=== PATIENT | male | born 2000 | race African-American/Black ===

== ENCOUNTER 2024-03-19 02:25 | Emergency (ER) | payer SELFPAY ==
--- NOTE | ~2024-03-19 | CT_ITS ---
EXAMINATION: CT soft tissue neck w con DATE: 03/19/2024 03:38 INDICATION: Neck pain TECHNIQUE: Computed tomography (CT) of the neck was performed with 75 mL Omnipaque-350 intravenous co ntrast. Automated exposure control and iterative reconstruction technique were employed. Exam dose: 452.44 mGy-cm total exam DLP. COMPARISON: None FINDINGS: There is minimal right upper mild left upper patchy infiltrate suggesting pneumonia. Minimal diameter of the aortic arch. There is superior mediastinal mass lesion or adenopathy. Normal size and homogeneous enhancement of the thyroid gland. The parotid and submandibular glands appear symmetric and normal. No cervical mass lesion or lymphadenopathy is detected. No evidence of carotid artery dissection or stenosis or occlusion. The airway is patent. The tonsillar regions are normal. No prevertebral soft tissue swelling. Normal epiglottis and aryepiglottic folds. No significant skeletal abnormality. IMPRESSION: Minimal right upper and left upper lobe patchy infiltrate suggesting pneumonia No cervical soft tissue mass lesion or adenopathy Reviewed, dictated and finalized at [facility] Reviewed, dictated and finalized at [facility]. TEST MECHANIC IMPRESSION: Minimal right upper and left upper lobe patchy infiltrate suggesti ng pneumonia No cervical soft tissue mass lesion or adenopathy
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
[2024-03-19 02:21] VITALS: PULSE 81; RESP 19; TEMP 36.7; O2SAT 100
--- NOTE | 2024-03-19 02:26 | ECG_ITS ---
Test Date: 2024-03-19 02:26:43 Measurements Intervals [place] Rate: 74 P: 15 FL: 150 QRS: 78 QRSD: 86 T: 29 QT: 364 QTc: 406 Interpretive Statements SINUS RHYTHM INCOMPLETE RIGHT BUNDLE BRANCH BLOCK NONSPECIFIC ST & T-WAVE ABNORMALITY No previous ECG available for comparison Electronically Signed On 03-22-2024 16:01:58 [employer] by Dante Zamarripa M.D.
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
[2024-03-19 03:03] LABS: Basophils Percent Auto 0.4 % (0.2-1.2); Eosinophils Absolute Auto 0.2 K/mm3 (0-0.3); Eosinophils Percent Auto 2.2 % (0-4.4); Hematocrit 33.1 % (42.0-52.0); Hemoglobin 11.1 g/dL (14.0-18.0); Immature Granulocyte Absolute 0.13 K/mm3 (0.00-0.031); Immature Granulocyte Percent A 1.6 % (0-0.5); Lymphocytes Absolute Auto 1.34 K/mm3 (0.9-3.2); Lymphocytes Percent Auto 16.5 % (18.3-44.2); Mean Corpuscular HGB Conc 33.5 g/dl (32-36); Mean Corpuscular Hemoglobin 28.2 pg (26-34); Mean Corpuscular Volume 84.2 fl (80-100); Mean Platelet Volume 8.9 fl (7.4-10.4); Monocytes Absolute Auto 0.8 K/mm3 (0.1-0.6); Monocytes Percent Auto 9.5 % (2.6-8.5); Neutrophils Absolute Auto 5.7 K/mm3 (1.3-6.7); Neutrophils Percent Auto 69.8 % (45.5-73.1); Platelet Count Result 382 k/mm3 (150-375); Red Blood Count 3.93 M/mm3 (4.6-6.20); Red Cell Distribution Width 10.7 % (11.5-14.5); White Blood Count 8.1 K/mm3 (4.5-10.0)
[2024-03-19 03:09] VITALS: BP 110/71; PULSE 78; RESP 13; O2SAT 100
[2024-03-19 03:13] VITALS: BP 110/71
[2024-03-19 03:13] LABS: Lactic Acid Reflex 0.9 mmol/L (0.7-2.0)
[2024-03-19 03:17] LABS: Alanine Aminotransferase 33 U/L (6-50); Albumin Level 3.7 g/dL (3.5-5.1); Alkaline Phosphatase 61 U/L (38-126); Anion Gap 3 mmol/L (4-12); Aspartate Amino Transferase 35 U/L (17-59); Bilirubin,Total 1.3 mg/dL (0.2-1.3); Blood Urea Nitrogen 12 mg/dL (9-20); Calcium 9.1 mg/dL (8.4-10.2); Carbon Dioxide 28 mmol/L (22-30); Chloride 101 mmol/L (98-107); Estimated Glomerular Filt Rate > 60; Glucose 105 mg/dL (65-110); Potassium 3.9 mmol/L (3.4-5.0); Sodium 132 mmol/L (137-145)
[2024-03-19 03:21] LABS: Partial Thromboplastin Time 28.2 Seconds (22.3-36.8)
[2024-03-19 03:29] LABS: Procalcitonin 0.2 ng/mL
[2024-03-19 03:39] LABS: Influenza A QL RT-PCR Negative (Negative); Influenza B QL RT-PCR Negative (Negative); RSV RNA, RT-PCR Negative (Negative); SARS-CoV-2 RNA PCR Negative (Negative)
[2024-03-19 05:24] VITALS: BP 122/88; PULSE 99; RESP 18; O2SAT 100
[2024-03-19 06:01] LABS: Add Urine Microscopic? YES; Appearance Urine Clear (Clear); Bilirubin Urine Negative (Negative); Blood Urine Negative (Negative); Color Urine Dark Yellow (Yellow); Glucose Urine UA Negative (Negative); Ketones Urine 1+ mg/dL (Negative); Leukocyte Esterase Ur Negative LEU/UL (Negative); Nitrate Urine Negative (Negative); Protein Urine Trace mg/dL (Negative); Specific Grav Ur > 1.045 (1.001-1.035)
[2024-03-19 06:04] LABS: Bacteria Urine None Seen /hpf; Non Pathogenic Casts 0-2; RBC Urine 0-2 /hpf (0-2); Squamous Epithelial Cell Urine None Seen /hpf (Few); WBC Urine 0-5 /hpf (0-3)
--- OUTSIDE RECORDS SUMMARY | 2024-03-26 02:06 | XMS_ITS | Clinical Summary ---
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 used for patients with unstable renal function and has not been validated in children and those over 70. Current interpretive data was last reviewed 2021. Blood 03/15/2024 10:0 8 PM WAITER/WAITRESS TAKE OUT 03/15/2024 10:48 PM WAITER/WAITRESS TAKE OUT [facility] BLOOD ORDERABLE S Final Result [facility] [place] [address] * (ABNORMAL) CBC without differential (03/15/2024 10:08 PM WAITER/WAITRESS TAKE OUT) Pathologist [facility] WBC 11.3(H) 3.8 - 9.9 K/cumm Hgb 12.5(L) 13.0 - 17.5 g/dL [facility] Hct 37.0(L) 38.9 - 50.3 % [facility] Plt 297 150 - 400 K/cumm [facility] MPV 9.4 9.1 - 12.3 fL [facility] RBC 4.43 4.30 - 5.80 M/cumm [facility] MCV 83.5 81.3 - 96.4 fL [facility] MCH 28.2 27.1 - 33.3 pg [facility] MCHC 33.8 32.3 - 35.7 g/dL [facility] RDW CV 11.0(L) 11.1 - 14.9 % [facility] RDW SD 33.6(L) 35.7 - 48.1 fL [facility] NRBC abs 0.00 0.00 - 0.01 K/cumm [facility] Blood 03/15/2024 10:0 8 PM WAITER/WAITRESS TAKE OUT 03/15/2024 10:47 PM WAITER/WAITRESS TAKE OUT Esther Bautista LAB BLOOD ORDERABLE S Final Result [facility] Department [place] [address] * Phosphorus (03/15/2024 10:08 PM WAITER/WAITRESS TAKE OUT) Pathologist [facility] Phosphorus, pl 4.1 2.3 - 4.5 mg/dL Blood 03/15/2024 10:0 8 PM WAITER/WAITRESS TAKE OUT 03/15/2024 10:48 PM WAITER/WAITRESS TAKE OUT [facility] LAB BLOOD ORDERABLE S Final Result Performing Organization Address City/[facility]/ZIP Co de Phone Number [facility] Department [place] [address] * Magnesium (03/15/2024 10:08 PM WAITER/WAITRESS TAKE OUT) Pathologist [facility] Magnesium 2.3 1.4 - 2.5 mg/dL Blood 03/15/2024 10:0 8 PM WAITER/WAITRESS TAKE OUT 03/15/2024 10:48 PM WAITER/WAITRESS TAKE OUT [facility] LAB BLOOD ORDERABLE S Final Result Performing Organization Address [facility] de Phone Number [facility] Department [place] [address] * (ABNORMAL) Basic metabolic panel (03/15/2024 10:08 PM WAITER/WAITRESS TAKE OUT) [facility] Sodium 139 135 - 145 mmol/L Potassium, pl 3.7 3.3 - 4.9 mmol/L [facility] Chloride 96(L) 97 - 110 mmol/L [facility] CO2 32 22 - 32 mmol/L [facility] Anion gap 11 2 - 15 mmol/L [facility] BUN 13 6 - 25 mg/dL [facility] Creatinine 1.16 0.80 - 1.30 mg/dL [facility] Glucose 88 70 - 199 mg/dL [facility] Comment: Interpretive Data Fasting glucose >/= 126 mg/dl is diagnostic for diabetes. ?? Fasting is defined as no caloric intake for at least 8 hours. Fasting glucose between 100 mg/dl to 125 mg/dl is diagnostic of prediabetes. In a patient with classic symptoms of hyperglycemia or hyperglycemic crisis, a random glucose >/= 200 mg/dl is diagnostic for diabetes. In the absence of unequivocal hyperglycemia, results should be confirmed by repeat testing. The classification and Diagnosis of Diabetes Diabetes Care 2021; 46: S19-S40. Current interpretive data was last revised 2022. Calcium 9.5 8.5 - 10.3 mg/dL [facility] Blood 03/15/2024 10:0 8 PM WAITER/WAITRESS TAKE OUT 03/15/2024 10:48 PM WAITER/WAITRESS TAKE OUT Esther [facility] DO LAB BLOOD ORDERABLE S Final Result Performing Organization Address [facility] Co de Phone Number [facility] [place] [address] * POCT glucose (03/15/2024 6:00 PM WAITER/WAITRESS TAKE OUT) Glucose, POC 92 70 - 199 mg/dL Blood 03/15/2024 6:00 PM WAITER/WAITRESS TAKE OUT 03/15/2024 6:00 PM WAITER/WAITRESS TAKE OUT [facility] LAB POCT ORDERABLES - DEVICE Final Result Performing Organization Address [facility] Phone Number [facility] Department [place] [address] * XR Abdomen 1 View AP (03/15/2024 2:24 PM WAITER/WAITRESS TAKE OUT) Anatomical Region Laterality Modality Body, Abdomen N/A Digital Radiogra phy 03/16/2024 8:30 AM WAITER/WAITRESS TAKE OUT Impressions 03/16/2024 8:30 AM WAITER/WAITRESS TAKE OUT Initial exam 12:07 PM. ??Nasogastric tube terminates in the peripyloric region of the stomach. Subsequent exam 2:22 PM. ??Slight retraction of the nasogastric tube, now terminating in the gastric antrum. Final exam 03/16/24, 1:07 AM. ??Slight retraction of the nasogastric tube, now terminating in the gastric body, side port just below the gastroesophageal junction. ??Normal bowel gas pattern. Electronically signed by: Shay Dougherty M.D. Narrative 03/16/2024 8:30 AM WAITER/WAITRESS TAKE OUT EXAMINATION: Abdomen, one view x3 exams. Procedure Note Shay Dougherty MD - 03/16/2024 EXAMINATION: Abdomen, one view x3 exams. IMPRESSION: Initial exam 12:07 PM. Nasogastric tube terminates in the peripyloric region of the stomach. Subsequent exam 2:22 PM. Slight retraction of the nasogastric tube, now terminating in the gastric antrum. Final exam 03/16/24, 1:07 AM. Slight retraction of the nasogastric tube, now terminating in the gastric body, side port just below the gastroesophageal junction. Normal bowel gas pattern. Electronically signed by: Shay Dougherty M.D. Esther Bautista DO IMG XR PROCEDURES F inal Result * POCT glucose (03/15/2024 12:31 PM WAITER/WAITRESS TAKE OUT) Glucose, POC 91 70 - 199 mg/dL Blood 03/15/2024 12:3 1 PM WAITER/WAITRESS TAKE OUT 03/15/2024 12:31 PM WAITER/WAITRESS TAKE OUT Esther Bautista DO LAB POCT ORDERABLES - DEVICE Final Result [facility] Department [place] [address] * XR Abdomen 1 View AP (03/15/2024 12:29 PM WAITER/WAITRESS TAKE OUT) Anatomical Region Laterality Modality Body, Abdomen N/A Computed Radiogr aphy 03/16/2024 8:30 AM WAITER/WAITRESS TAKE OUT Impressions 03/16/2024 8:30 AM WAITER/WAITRESS TAKE OUT Initial exam 12:07 PM. ??Nasogastric tube terminates in the peripyloric region of the stomach. Subsequent exam 2:22 PM. ??Slight retraction of the nasogastric tube, now terminating in the gastric antrum. Final exam 03/16/24, 1:07 AM. ??Slight retraction of the nasogastric tube, now terminating in the gastric body, side port just below the gastroesophageal junction. ??Normal bowel gas pattern. Electronically signed by: Shay Dougherty M.D. Narrative 03/16/2024 8:30 AM WAITER/WAITRESS TAKE OUT EXAMINATION: Abdomen, one view x3 exams. Procedure Note Shay Dougherty MD - 03/16/2024 EXAMINATION: Abdomen, one view x3 exams. IMPRESSION: Initial exam 12:07 PM. Nasogastric tube terminates in the peripyloric region of the stomach. Subsequent exam 2:22 PM. Slight retraction of the nasogastric tube, now terminating in the gastric antrum. Final exam 03/16/24, 1:07 AM. Slight retraction of the nasogastric tube, now terminating in the gastric body, side port just below the gastroesophageal junction. Normal bowel gas pattern. Electronically signed by: Shay Dougherty M.D. Estherrosy Bautista DO IMG XR PROCEDURES F inal Result * eGFR (03/14/2024 10:11 PM WAITER/WAITRESS TAKE OUT) eGFR >90 >=60 mL/min/1. 73 m2 Comment: Interpretive Data Reference Interval Normal ?>/= 90 mL/min/1.73m2 Mildly decreased* ? 60 - 89 mL/min/1.73m2 Mildly to moderately decreased ?45 - 59 mL/min/1.73m2 Moderately to severely decreased ??30 - 44 mL/min/1.73m2 Severely decreased ?15 - 29 mL/min/1.73m2 Kidney Failure ?< 15 ??mL/min/1.73m2 *Relative to young adult level Estimated glomerular filtration rate is determined by the 2020 CKD-EPI equation recommended by the National Kidney Foundation (A Unifying Approach to GFR Estimation: Recommendations of the NKF-ASK Task Force on Reassessing the Inclusion of Race in Diagnosing Kidney Disease, JASN 2020). The CKD-EPI equation should not be used for patients with unstable renal function and has not been validated in children and those over 70. Current interpretive data was last reviewed 2021. Blood 03/14/2024 10:1 1 PM WAITER/WAITRESS TAKE OUT 03/14/2024 10:41 PM WAITER/WAITRESS TAKE OUT [facility] BLOOD ORDERABLE S Final Result [facility] [place] [address] * (ABNORMAL) CBC without differential (03/14/2024 10:11 PM WAITER/WAITRESS TAKE OUT) [facility] WBC 11.0(H) 3.8 - 9.9 K/cumm Hgb 12.5(L) 13.0 - 17.5 g/dL [facility] Hct 36.3(L) 38.9 - 50.3 % [facility] Plt 255 150 - 400 K/cumm [facility] MPV 9.8 9.1 - 12.3 fL [facility] RBC 4.34 4.30 - 5.80 M/cumm [facility] MCV 83.6 81.3 - 96.4 fL [facility] MCH 28.8 27.1 - 33.3 pg [facility] MCHC 34.4 32.3 - 35.7 g/dL [facility] RDW CV 10.9(L) 11.1 - 14.9 % [facility] RDW SD 33.6(L) 35.7 - 48.1 fL [facility] NRBC abs 0.00 0.00 - 0.01 K/cumm [facility] Blood 03/14/2024 10:1 1 PM WAITER/WAITRESS TAKE OUT 03/14/2024 10:42 PM WAITER/WAITRESS TAKE OUT Esther Michelle Bautista LAB BLOOD ORDERABLE S Final Result [facility] [place] [address] * Phosphorus (03/14/2024 10:11 PM WAITER/WAITRESS TAKE OUT) [facility] Phosphorus, pl 3.4 2.3 - 4.5 mg/dL Blood 03/14/2024 10:1 1 PM WAITER/WAITRESS TAKE OUT 03/14/2024 10:41 PM WAITER/WAITRESS TAKE OUT [facility] LAB BLOOD ORDERABLE S Final Result Performing Organization Address [facility] Co de Phone Number [facility] Department [place] [address] * Magnesium (03/14/2024 10:11 PM WAITER/WAITRESS TAKE OUT) [facility] Magnesium 1.8 1.4 - 2.5 mg/dL Blood 03/14/2024 10:1 1 PM WAITER/WAITRESS TAKE OUT 03/14/2024 10:41 PM WAITER/WAITRESS TAKE OUT [facility] LAB BLOOD ORDERABLE S Final Result Performing Organization Address [facility] de Phone Number [facility] [place] [address] * (ABNORMAL) Basic metabolic panel (03/14/2024 10:11 PM WAITER/WAITRESS TAKE OUT) [facility] Sodium 138 135 - 145 mmol/L Potassium, pl 3.6 3.3 - 4.9 mmol/L [facility] Chloride 96(L) 97 - 110 mmol/L [facility] CO2 30 22 - 32 mmol/L [facility] Anion gap 12 2 - 15 mmol/L [facility] BUN 9 6 - 25 mg/dL [facility] Creatinine 1.15 0.80 - 1.30 mg/dL [facility] Glucose 88 70 - 199 mg/dL [facility] Comment: Interpretive Data Fasting glucose >/= 126 mg/dl is diagnostic for diabetes. ?? Fasting is defined as no caloric intake for at least 8 hours. Fasting glucose between 100 mg/dl to 125 mg/dl is diagnostic of prediabetes. In a patient with classic symptoms of hyperglycemia or hyperglycemic crisis, a random glucose >/= 200 mg/dl is diagnostic for diabetes. In the absence of unequivocal hyperglycemia, results should be confirmed by repeat testing. The classification and Diagnosis of Diabetes Diabetes Care 2021; 46: S19-S40. Current interpretive data was last revised 2022. Calcium 9.4 8.5 - 10.3 mg/dL [facility] Blood 03/14/2024 10:1 1 PM WAITER/WAITRESS TAKE OUT 03/14/2024 10:41 PM WAITER/WAITRESS TAKE OUT Esther Bautista DO LAB BLOOD ORDERABLE S Final Result [facility] [place] [address] * (ABNORMAL) Urinalysis reflex to microscopic (03/14/2024 6:07 PM WAITER/WAITRESS TAKE OUT) Color, ur Ruth Yellow Clarity, ur Cloudy(A) Clear [facility] Specific gravity, ur 1.022 1.003 - 1.030 [facility] pH, urine 8.0 [facility] Comment: Interpretive Data ? Urine pH is affected by diet, medications, systemic acid-base disturbances, and renal tubular function. ??pH may affect urinary stone formation. ??For example, urine pH below 6.0 may help reduce the tendency for calcium phosphate stones and pH greater than 6.0 may reduce the tendency for uric acid stone formation. Source: [facility] [employer] Current Interpretive Data was last revised on 2017 Protein, ur ql 1+(A) Negative [facility] Glucose, ur ql Negative Negative [facility] Ketones, ur 4+(A) Negative [facility] Bilirubin, ur Negative Negative [facility] Blood, ur Negative Negative [facility] Urobilinogen, ur 4.0(A) <2.0 mg/dL [facility] Nitrite, ur Negative Negative [facility] Leukocyte esterase, ur Negative Negative [facility] UA reflex comment Reflex to microscopic UA will be performed. [facility] Urine 03/14/2024 6:07 PM WAITER/WAITRESS TAKE OUT 03/14/2024 6:41 PM WAITER/WAITRESS TAKE OUT us Esther Bautista DO LAB URINE ORDERABLE S Final Result Performing Organization Address [facility] [place] [address] * (ABNORMAL) Urinalysis, microscopic only (03/14/2024 6:07 PM WAITER/WAITRESS TAKE OUT) WBC, ur 0-5 0 - 5 /HPF RBC, ur 0-2 0 - 2 /HPF [facility] Mucous, ur Present(A) [facility] Amorphous crystals, ur 4+(A) [facility] Urine 03/14/2024 6:07 PM WAITER/WAITRESS TAKE OUT 03/14/2024 6:41 PM WAITER/WAITRESS TAKE OUT Esther Bautista DO LAB URINE ORDERABLE S Final Result Performing Organization Address [facility] de Phone Number [facility] [place] [address] * eGFR (03/14/2024 4:14 AM WAITER/WAITRESS TAKE OUT) eGFR >90 >=60 mL/min/1. 73 m2 Comment: Interpretive Data Reference Interval Normal ?>/= 90 mL/min/1.73m2 Mildly decreased* ? 60 - 89 mL/min/1.73m2 Mildly to moderately decreased ?45 - 59 mL/min/1.73m2 Moderately to severely decreased ??30 - 44 mL/min/1.73m2 Severely decreased ?15 - 29 mL/min/1.73m2 Kidney Failure ?< 15 ??mL/min/1.73m2 *Relative to young adult level Estimated glomerular filtration rate is determined by the 2020 CKD-EPI equation recommended by the National Kidney Foundation (A Unifying Approach to GFR Estimation: Recommendations of the NKF-ASK Task Force on Reassessing the Inclusion of Race in Diagnosing Kidney Disease, JASN 202). The CKD-EPI equation should not be used for patients with unstable renal function and has not been validated in children and those over 70. Current interpretive data was last reviewed 2021. Blood 03/14/2024 4:14 AM WAITER/WAITRESS TAKE OUT 03/14/2024 4:47 AM WAITER/WAITRESS TAKE OUT [facility] LAB BLOOD ORDERABLE S Final Result Performing Organization Address City/State/[facility] Co de Phone Number [facility] [place] [address] * (ABNORMAL) CBC without differential (03/14/2024 4:14 AM WAITER/WAITRESS TAKE OUT) WBC 10.0(H) 3.8 - 9.9 K/cumm Hgb 11.5(L) 13.0 - 17.5 g/dL [facility] Hct 34.0(L) 38.9 - 50.3 % [facility] Plt 208 150 - 400 K/cumm [facility] MPV 9.7 9.1 - 12.3 fL [facility] RBC 4.05(L) 4.30 - 5.80 M/cumm [facility] MCV 84.0 81.3 - 96.4 fL [facility] MCH 28.4 27.1 - 33.3 pg [facility] MCHC 33.8 32.3 - 35.7 g/dL [facility] RDW CV 11.0(L) 11.1 - 14.9 % [facility] RDW SD 33.8(L) 35.7 - 48.1 fL [facility] NRBC abs 0.00 0.00 - 0.01 K/cumm [facility] Blood 03/14/2024 4:14 AM WAITER/WAITRESS TAKE OUT 03/14/2024 4:46 AM WAITER/WAITRESS TAKE OUT [facility] LAB BLOOD ORDERABLE S Final Result Performing Organization Address City/[facility] Co de Phone Number [facility] [place] [address] * Phosphorus (03/14/2024 4:14 AM WAITER/WAITRESS TAKE OUT) [facility] Phosphorus, pl 3.0 2.3 - 4.5 mg/dL Blood 03/14/2024 4:14 AM WAITER/WAITRESS TAKE OUT 03/14/2024 4:47 AM WAITER/WAITRESS TAKE OUT [facility] LAB BLOOD ORDERABLE S Final Result Performing Organization Address City/[facility] Co de Phone Number [facility] [place] [address] * Magnesium (03/14/2024 4:14 AM WAITER/WAITRESS TAKE OUT) [facility] Magnesium 1.9 1.4 - 2.5 mg/dL Blood 03/14/2024 4:14 AM WAITER/WAITRESS TAKE OUT 03/14/2024 4:47 AM WAITER/WAITRESS TAKE OUT [facility] LAB BLOOD ORDERABLE S Final Result Performing Organization Address [facility] de Phone Number [facility] [place] [address] * (ABNORMAL) Basic metabolic panel (03/14/2024 4:14 AM WAITER/WAITRESS TAKE OUT) [facility] Sodium 134(L) 135 - 145 mmol/L Potassium, pl 3.7 3.3 - 4.9 mmol/L [facility] Chloride 96(L) 97 - 110 mmol/L [facility] CO2 26 22 - 32 mmol/L [facility] Anion gap 12 2 - 15 mmol/L [facility] BUN 9 6 - 25 mg/dL [facility] Creatinine 1.12 0.80 - 1.30 mg/dL [facility] Glucose 100 70 - 199 mg/dL [facility] Comment: Interpretive Data Fasting glucose >/= 126 mg/dl is diagnostic for diabetes. ?? Fasting is defined as no caloric intake for at least 8 hours. Fasting glucose between 100 mg/dl to 125 mg/dl is diagnostic of prediabetes. In a patient with classic symptoms of hyperglycemia or hyperglycemic crisis, a random glucose >/= 200 mg/dl is diagnostic for diabetes. In the absence of unequivocal hyperglycemia, results should be confirmed by repeat testing. The classification and Diagnosis of Diabetes Diabetes Care 2021; 46: S19-S40. Current interpretive data was last revised 2022. Calcium 9.0 8.5 - 10.3 mg/dL [facility] Blood 03/14/2024 4:14 AM WAITER/WAITRESS TAKE OUT 03/14/2024 4:47 AM WAITER/WAITRESS TAKE OUT us Esther Bautista DO LAB BLOOD ORDERABLE S Final Result [facility] [place] [address] * XR Abdomen 1 View AP (03/13/2024 11:24 PM WAITER/WAITRESS TAKE OUT) Anatomical Region Laterality Modality Body, Abdomen N/A Computed Radiogr aphy 03/14/2024 8:57 AM WAITER/WAITRESS TAKE OUT Impressions 03/14/2024 11:09 AM WAITER/WAITRESS TAKE OUT Gastric tube tip terminates in the cardia with side-port in the fundus. Dictated by: Oh Moran MD The radiology attending physician has personally reviewed this study, and had reviewed and/or edited this written report and agrees with it. Electronically signed by: Shay Dougherty M.D. Narrative 03/14/2024 11:09 AM WAITER/WAITRESS TAKE OUT EXAMINATION: Abdomen, one view. HISTORY: Check tube placement. COMPARISON: CT 03/11/2024 Procedure Note Shay Dougherty MD - 03/14/2024 EXAMINATION: Abdomen, one view. HISTORY: Check tube placement. COMPARISON: CT 03/11/2024 IMPRESSION: Gastric tube tip terminates in the cardia with side-port in the fundus. Dictated by: Oh Mroan MD The radiology attending physician has personally reviewed this study, and had reviewed and/or edited this written report and agrees with it. Electronically signed by: Shay Dougherty M.D. us Esther Bautista DO IMG XR PROCEDURES F inal Result * eGFR (03/12/2024 10:31 PM WAITER/WAITRESS TAKE OUT) eGFR 89 >=60 mL/min/1. 73 m2 Comment: Interpretive Data Reference Interval Normal ?>/= 90 mL/min/1.73m2 Mildly decreased* ? 60 - 89 mL/min/1.73m2 Mildly to moderately decreased ?45 - 59 mL/min/1.73m2 Moderately to severely decreased ??30 - 44 mL/min/1.73m2 Severely decreased ?15 - 29 mL/min/1.73m2 Kidney Failure ?< 15 ??mL/min/1.73m2 *Relative to young adult level Estimated glomerular filtration rate is determined by the 2020 CKD-EPI equation recommended by the National Kidney Foundation (A Unifying Approach to GFR Estimation: Recommendations of the [employer] Task Force on Reassessing the Inclusion of Race in Diagnosing Kidney Disease, JASN 2020). The CKD-EPI equation should not be used for patients with unstable renal function and has not been validated in children and those over 70. Current interpretive data was last reviewed 2021. Blood 03/12/2024 10:3 1 PM WAITER/WAITRESS TAKE OUT 03/12/2024 11:03 PM WAITER/WAITRESS TAKE OUT Esther Bautista DO LAB BLOOD ORDERABLE S Final Result [facility] Department [place] [address] * HIV 1/2 Antibody plus p24 Antigen Blood (03/12/2024 10:31 PM WAITER/WAITRESS TAKE OUT) HIV 1/2 ab + p24 ag Nonreactive Nonreactive Comment:Nonreactive for HIV- 1 antigen and HIV-1/HIV-2 antibodies. No laboratory evidence of HIV infection. If acute HIV infection is suspected, consider testing for HIV-1 RNA. Current interpretive data was last revised on 21. Blood 03/12/2024 10:3 1 PM WAITER/WAITRESS TAKE OUT 03/12/2024 11:04 PM WAITER/WAITRESS TAKE OUT Esther Bautista DO LAB MICROBIOLOGY - GENERAL ORDERABLES Final Result Performing Organization Address [facility] de Phone Number [facility] [place] [place] [address] * Hepatitis C antibody Blood (03/12/2024 10:31 PM WAITER/WAITRESS TAKE OUT) Pathologist [facility] Hep C Ab Nonreactive Nonreactive Comment:Antibodies to HCV no t detected. Does NOT exclude the possibility of recent exposure to HCV. Current interpretive data was last revised on 21 Blood 03/12/2024 10:3 1 PM WAITER/WAITRESS TAKE OUT 03/12/2024 11:04 PM WAITER/WAITRESS TAKE OUT Esther Bautista DO LAB MICROBIOLOGY - GENERAL ORDERABLES Final Result Performing Organization Address City/[facility] Co de Phone Number [facility] [place] [employer] [place] [address] * RPR Blood (03/12/2024 10:31 PM WAITER/WAITRESS TAKE OUT) Pathologist [facility] RPR Nonreactive Nonreactive Blood 03/12/2024 10:3 1 PM WAITER/WAITRESS TAKE OUT 03/12/2024 11:03 PM WAITER/WAITRESS TAKE OUT Esther Michelle Bautista DO LAB MICROBIOLOGY - GENERAL ORDERABLES Final Result Performing Organization Address [facility] de Phone Number [facility] Department [place] [address] * Hepatitis B Surface Antigen Blood (03/12/2024 10:31 PM WAITER/WAITRESS TAKE OUT) [facility] HepBsAg Nonreactive Nonreactive Blood 03/12/2024 10:3 1 PM WAITER/WAITRESS TAKE OUT 03/12/2024 11:04 PM WAITER/WAITRESS TAKE OUT Esther Bautista DO LAB MICROBIOLOGY - GENERAL ORDERABLES Final Result Performing Organization Address [facility] Co de Phone Number [facility] [place] [address] * (ABNORMAL) CBC without differential (03/12/2024 10:31 PM WAITER/WAITRESS TAKE OUT) [facility] WBC 15.8(H) 3.8 - 9.9 K/cumm Hgb 12.5(L) 13.0 - 17.5 g/dL [facility] Hct 36.8(L) 38.9 - 50.3 % [facility] Plt 213 150 - 400 K/cumm [facility] MPV 9.6 9.1 - 12.3 fL [facility] RBC 4.33 4.30 - 5.80 M/cumm [facility] MCV 85.0 81.3 - 96.4 fL [facility] MCH 28.9 27.1 - 33.3 pg [facility] MCHC 34.0 32.3 - 35.7 g/dL [facility] RDW CV 11.0(L) 11.1 - 14.9 % [facility] RDW SD 34.3(L) 35.7 - 48.1 fL [facility] NRBC abs 0.00 0.00 - 0.01 K/cumm [facility] Blood 03/12/2024 10:3 1 PM WAITER/WAITRESS TAKE OUT 03/12/2024 11:04 PM WAITER/WAITRESS TAKE OUT Esther Bautista DO LAB BLOOD ORDERABLE S Final Result Performing Organization Address City/[facility] Co de Phone Number [facility] Department [place] [address] * (ABNORMAL) Phosphorus (03/12/2024 10:31 PM WAITER/WAITRESS TAKE OUT) [facility] Phosphorus, pl 1.5(L) 2.3 - 4.5 mg/dL Blood 03/12/2024 10:3 1 PM WAITER/WAITRESS TAKE OUT 03/12/2024 11:03 PM WAITER/WAITRESS TAKE OUT Esther Michelle Bautista LAB BLOOD ORDERABLE S Final Result Performing Organization Address City/[facility]/ZIP Co de Phone Number [facility] [place] [address] * Magnesium (03/12/2024 10:31 PM WAITER/WAITRESS TAKE OUT) [facility] Magnesium 1.7 1.4 - 2.5 mg/dL Blood 03/12/2024 10:3 1 PM WAITER/WAITRESS TAKE OUT 03/12/2024 11:03 PM WAITER/WAITRESS TAKE OUT Esther Michelle Bautista LAB BLOOD ORDERABLE S Final Result Performing Organization Address City/[facility] Co de Phone Number [facility] Department [place] [address] * Basic metabolic panel (03/12/2024 10:31 PM WAITER/WAITRESS TAKE OUT) [facility] Sodium 137 135 - 145 mmol/L Potassium, pl 3.9 3.3 - 4.9 mmol/L [facility] Chloride 100 97 - 110 mmol/L [facility] CO2 25 22 - 32 mmol/L [facility] Anion gap 12 2 - 15 mmol/L [facility] BUN 8 6 - 25 mg/dL [facility] Creatinine 1.19 0.80 - 1.30 mg/dL [facility] Glucose 88 70 - 199 mg/dL [facility] Comment: Interpretive Data Fasting glucose >/= 126 mg/dl is diagnostic for diabetes. ?? Fasting is defined as no caloric intake for at least 8 hours. Fasting glucose between 100 mg/dl to 125 mg/dl is diagnostic of prediabetes. In a patient with classic symptoms of hyperglycemia or hyperglycemic crisis, a random glucose >/= 200 mg/dl is diagnostic for diabetes. In the absence of unequivocal hyperglycemia, results should be confirmed by repeat testing. The classification and Diagnosis of Diabetes Diabetes Care 2021; 46: S19-S40. Current interpretive data was last revised 2022. Calcium 9.1 8.5 - 10.3 mg/dL [facility] Blood 03/12/2024 10:3 1 PM WAITER/WAITRESS TAKE OUT 03/12/2024 11:03 PM WAITER/WAITRESS TAKE OUT Esther Bautista DO LAB BLOOD ORDERABLE S Final Result [facility] Department [place] [address] * Surgical pathology (03/11/2024 2:45 PM WAITER/WAITRESS TAKE OUT) Tissue (Small bowel, resection non- tumor) 03/11/2024 2:45 PM WAITER/WAITRESS TAKE OUT Tissue (Colon, Resection, Non-tumor) 03/11/2024 2:58 PM WAITER/WAITRESS TAKE OUT Narrative PATHOLOGY [facility] - 03/16/2024 12:57 PM WAITER/WAITRESS TAKE OUT EPIC results best viewed via link to PDF [facility] [place] [address] Note to Patients: This report may contain a detailed description of human tissue sent by a health care provider to the laboratory for pathologic evaluation. The content of this report is essential for diagnosis and may provide important critical findings. This information may be unfamiliar to patients to review without a medical professional present. It is advised that the patient review this report in the presence of a health care provider who can answer questions and explain the details. SURGICAL PATHOLOGY REPORT FINAL Patient Name: ?? BLANCA CHINCHILLA Gender: ??M : ??2000 (Age: 23) [address] [place] Hospital #: ??[id number] Taken:03/11/2024 Received:03/13/2024 Reported: 03/16/2024 Patient Type: [facility] Inpatient ?? Service: Emergency Location: [place] [id number] Physician(s): ??Esther Bautista, DO Pasquale Byrd MD Diagnosis: A. ??Small bowel, resection ? - Segment of small intestine with transmural defects, hemorrhage, and acute ischemic injury. ? - Viable margins of resection. B. ??Colon, resection ? - Segment of large intestine with hemorrhage,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 reanalysis. Chloride 98 97 - 110 mmol/L [facility] CO2 22 22 - 32 mmol/L [facility] Anion gap 20(H) 2 - 15 mmol/L [facility] BUN 16 6 - 25 mg/dL [facility] Creatinine 1.38(H) 0.80 - 1.30 mg/dL [facility] Glucose 132 70 - 199 mg/dL [facility] Comment: Interpretive Data Fasting glucose >/= 126 mg/dl is diagnostic for diabetes. ?? Fasting is defined as no caloric intake for at least 8 hours. Fasting glucose between 100 mg/dl to 125 mg/dl is diagnostic of prediabetes. In a patient with classic symptoms of hyperglycemia or hyperglycemic crisis, a random glucose >/= 200 mg/dl is diagnostic for diabetes. In the absence of unequivocal hyperglycemia, results should be confirmed by repeat testing. The classification and Diagnosis of Diabetes Diabetes Care 202; 46: S19-S40. Current interpretive data was last revised 2022. Calcium 9.7 8.5 - 10.3 mg/dL [facility] Blood 03/11/2024 12:3 4 PM WAITER/WAITRESS TAKE OUT 03/11/2024 12:59 PM WAITER/WAITRESS TAKE OUT us Erasto Gomes MD LAB BLOOD ORDERABLES Fi nal Result Performing Organization Address City/[facility]/ZIP Co de Phone Number [facility] [place] [address] from Last 3 Months Insurance [facility] Advance Directives For more information, please contact: [phone] * Full Code (Latest Code Status on File) Date Activated Date Inactivated Comments 03/11/2024 7:25 PM 03/18/2024 8:10 PM * Full Code Date Activated Date Inactivated Comments 06/30/2019 9:27 PM 07/02/2019 10:26 AM Care Teams Keyboard Teacher Relationship Specialty Start Date End Date Ele Canas MD [address] [place] [id number] PCP - General Family Medicine 10/20/21
--- OUTSIDE RECORDS SUMMARY | 2024-03-26 02:06 | XMS_ITS | Referral Summary ---
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 K/cumm [facility] MPV 9.7 9.1 - 12.3 fL [facility] RBC 4.05(L) 4.30 - 5.80 M/cumm [facility] MCV 84.0 81.3 - 96.4 fL [facility] MCH 28.4 27.1 - 33.3 pg [facility] MCHC 33.8 32.3 - 35.7 g/dL [facility] RDW CV 11.0(L) 11.1 - 14.9 % [facility] RDW SD 33.8(L) 35.7 - 48.1 fL [facility] NRBC abs 0.00 0.00 - 0.01 K/cumm [facility] Blood 03/14/2024 4:14 AM TRANSONIC ENGINEER 03/14/2024 4:46 AM TRANSONIC ENGINEER [facility] BLOOD ORDERABLE S Final Result Performing Organization Address [facility] de Phone Number [facility] [place] [address] * Phosphorus (03/14/2024 4:14 AM TRANSONIC ENGINEER) Pathologist [facility] Phosphorus, pl 3.0 2.3 - 4.5 mg/dL Blood 03/14/2024 4:14 AM TRANSONIC ENGINEER 03/14/2024 4:47 AM TRANSONIC ENGINEER [facility] BLOOD ORDERABLE S Final Result Performing Organization Address [facility] de Phone Number [facility] [place] [address] * Magnesium (03/14/2024 4:14 AM TRANSONIC ENGINEER) Pathologist [facility] Magnesium 1.9 1.4 - 2.5 mg/dL Blood 03/14/2024 4:14 AM TRANSONIC ENGINEER 03/14/2024 4:47 AM TRANSONIC ENGINEER Esther Bautista DO LAB BLOOD ORDERABLE S Final Result [facility] [place] [address] * (ABNORMAL) Basic metabolic panel (03/14/2024 4:14 AM TRANSONIC ENGINEER) Pathologist [facility] Sodium 134(L) 135 - 145 mmol/L Potassium, pl 3.7 3.3 - 4.9 mmol/L [facility] Chloride 96(L) 97 - 110 mmol/L [facility] CO2 26 22 - 32 mmol/L [facility] Anion gap 12 2 - 15 mmol/L [facility] BUN 9 6 - 25 mg/dL [facility] Creatinine 1.12 0.80 - 1.30 mg/dL [facility] Glucose 100 70 - 199 mg/dL [facility] Comment: Interpretive Data Fasting glucose >/= 126 [...] 2022. Calcium 9.0 8.5 - 10.3 mg/dL [facility] Blood 03/14/2024 4:14 AM TRANSONIC ENGINEER 03/14/2024 4:47 AM TRANSONIC ENGINEER us Esther Bautista DO LAB BLOOD ORDERABLE S Final Result ROMAN CHATTERJEE [facility] [place] [address] * XR Abdomen 1 View AP (03/13/2024 11:24 PM TRANSONIC ENGINEER) Anatomical Region Laterality Modality Body, Abdomen N/A Computed Radiogr aphy 03/14/2024 8:57 AM TRANSONIC ENGINEER Impressions 03/14/2024 11:09 AM TRANSONIC ENGINEER Gastric tube tip terminates in the cardia with side-port in the fundus. Dictated by: Oh Moran MD The radiology attending physician has personally reviewed this study, and had reviewed and/or edited this written report and agrees with it. Electronically signed by: Shay Dougherty M.D. Narrative 03/14/2024 11:09 AM TRANSONIC ENGINEER EXAMINATION: Abdomen, one view. HISTORY: Check tube [...] it. Electronically signed by: Shay Dougherty M.D. Esther Bautista DO IMG XR PROCEDURES F inal Result * eGFR (03/12/2024 10:31 PM TRANSONIC ENGINEER) eGFR 89 >=60 mL/min/1. 73 m2 Comment: [...] reviewed 2021. Blood 03/12/2024 10:3 1 PM TRANSONIC ENGINEER 03/12/2024 11:03 PM TRANSONIC ENGINEER Esther Bautista DO LAB BLOOD ORDERABLE S Final Result Performing Organization Address [facility] Co de Phone Number ROMAN CHATTERJEE [facility] [place] [address] * HIV 1/2 Antibody plus p24 Antigen Blood (03/12/2024 10:31 PM TRANSONIC ENGINEER) Pathologist [facility] HIV 1/2 ab + p24 ag Nonreactive Nonreactive Comment:Nonreactive for HIV- 1 antigen and HIV-1/HIV-2 antibodies. No laboratory evidence of HIV infection. If acute HIV infection is suspected, consider testing for HIV-1 RNA. Current interpretive data was last revised on 21. Blood 03/12/2024 10:3 1 PM TRANSONIC ENGINEER 03/12/2024 11:04 PM TRANSONIC ENGINEER Esther Bautista DO LAB MICROBIOLOGY - GENERAL ORDERABLES Final Result [facility] [place] [address] * Hepatitis C antibody Blood (03/12/2024 10:31 PM TRANSONIC ENGINEER) Pathologist [facility] Hep C Ab Nonreactive Nonreactive Comment:Antibodies to HCV no t detected. Does NOT exclude the possibility of recent exposure to HCV. Current interpretive data was last revised on 21 Blood 03/12/2024 10:3 1 PM TRANSONIC ENGINEER 03/12/2024 11:04 PM TRANSONIC ENGINEER Esther Bautista DO LAB MICROBIOLOGY - GENERAL ORDERABLES Final Result Performing Organization Address [facility] [place] [address] * RPR Blood (03/12/2024 10:31 PM TRANSONIC ENGINEER) [facility] RPR Nonreactive Nonreactive Blood 03/12/2024 10:3 1 PM TRANSONIC ENGINEER 03/12/2024 11:03 PM TRANSONIC ENGINEER Esther Bautista DO LAB MICROBIOLOGY - GENERAL ORDERABLES Final Result Performing Organization Address [facility] Co de Phone Number [facility] [place] [address] * Hepatitis B Surface Antigen Blood (03/12/2024 10:31 PM TRANSONIC ENGINEER) [facility] HepBsAg Nonreactive Nonreactive Blood 03/12/2024 10:3 1 PM TRANSONIC ENGINEER 03/12/2024 11:04 PM TRANSONIC ENGINEER Esther Bautista DO LAB MICROBIOLOGY - GENERAL ORDERABLES Final Result Performing Organization Address [facility] Co de Phone Number [facility] [place] [address] * (ABNORMAL) CBC without differential (03/12/2024 10:31 PM TRANSONIC ENGINEER) Pathologist [facility] WBC 15.8(H) 3.8 - 9.9 K/cumm Hgb 12.5(L) 13.0 - 17.5 g/dL [facility] Hct 36.8(L) 38.9 - 50.3 % [facility] Plt 213 150 - 400 K/cumm [facility] MPV 9.6 9.1 - 12.3 fL [facility] RBC 4.33 4.30 - 5.80 M/cumm [facility] MCV 85.0 81.3 - 96.4 fL [facility] MCH 28.9 27.1 - 33.3 pg [facility] MCHC 34.0 32.3 - 35.7 g/dL [facility] RDW CV 11.0(L) 11.1 - 14.9 % [facility] RDW SD 34.3(L) 35.7 - 48.1 fL [facility] NRBC abs 0.00 0.00 - 0.01 K/cumm [facility] Blood 03/12/2024 10:3 1 PM TRANSONIC ENGINEER 03/12/2024 11:04 PM TRANSONIC ENGINEER [facility] LAB BLOOD ORDERABLE S Final Result Performing Organization Address City/[facility] de Phone Number [facility] Department [place] [address] * (ABNORMAL) Phosphorus (03/12/2024 10:31 PM TRANSONIC ENGINEER) [facility] Phosphorus, pl 1.5(L) 2.3 - 4.5 mg/dL Blood 03/12/2024 10:3 1 PM TRANSONIC ENGINEER 03/12/2024 11:03 PM TRANSONIC ENGINEER [facility] LAB BLOOD ORDERABLE S Final Result Performing Organization Address City/[facility]/ZIP Co de Phone Number [facility] [place] [address] * Magnesium (03/12/2024 10:31 PM TRANSONIC ENGINEER) Magnesium 1.7 1.4 - 2.5 mg/dL Blood 03/12/2024 10:3 1 PM TRANSONIC ENGINEER 03/12/2024 11:03 PM TRANSONIC ENGINEER [facility] LAB BLOOD ORDERABLE S Final Result [facility] [place] [address] * Basic metabolic panel (03/12/2024 10:31 PM TRANSONIC ENGINEER) Pathologist [facility] Sodium 137 135 - 145 mmol/L Potassium, pl 3.9 3.3 - 4.9 mmol/L [facility] Chloride 100 97 - 110 mmol/L [facility] CO2 25 22 - 32 mmol/L [facility] Anion gap 12 2 - 15 mmol/L [facility] BUN 8 6 - 25 mg/dL [facility] Creatinine 1.19 0.80 - 1.30 mg/dL [facility] Glucose 88 70 - 199 mg/dL [facility] Comment: Interpretive Data Fasting glucose >/= 126 [...] 2022. Calcium 9.1 8.5 - 10.3 mg/dL [facility] Blood 03/12/2024 10:3 1 PM TRANSONIC ENGINEER 03/12/2024 11:03 PM TRANSONIC ENGINEER us Estherrosy Bautista DO LAB BLOOD ORDERABLE S Final Result [facility] [place] [address] * Surgical pathology (03/11/2024 2:45 PM TRANSONIC ENGINEER) Tissue (Small bowel, resection non- tumor) 03/11/2024 2:45 PM TRANSONIC ENGINEER Tissue (Colon, Resection, Non-tumor) 03/11/2024 2:58 PM TRANSONIC ENGINEER Narrative PATHOLOGY [facility] - 03/16/2024 12:57 PM TRANSONIC ENGINEER EPIC results best viewed via link to PDF [facility] Daiana Morfin [facility] [place] [address] Note to Patients: This report may contain [...] PATHOLOGY REPORT FINAL Patient Name: ?? BLANCA CHINCHILLAMaryellen Gender: ??M : ??2000 (Age: 23) Address: ??[address] [place] [address] ??[id number] Hospital #: ??[id number] Taken:03/11/2024 Received:03/13/2024 Reported: 03/16/2024 Patient Type: [facility] Inpatient ?? Service: Emergency Location: [facility] [address]64 Physician(s): ??Esther Bautista, DO Pasquale Byrd MD [...] in size (0.2 cm). Photographs are provided. Hospital Medical Assistant sections are submitted in cassettes A1-A2 (entire [...] in size (0.3-0.5 cm). Photographs are provided. Hospital Medical Assistant sections are submitted in cassettes B1-B2 (entire [...] Surgical Pathology and Flow Cytometry Departments at [facility] as part of an ongoing quality assurance specialist program and in compliance with federally [...] Surgical Pathology and Flow Cytometry Departments of [facility]. ??It has not been cleared or approved by the U. S. Food and Drug Administration. IMAGES AND SCANNED DOCUMENTS, IF INCLUDED, ONLY VIEWABLE IN PDF VERSION OF REPORT Esther Bautista DO LAB PATHOLOGY ORDER JULIEN Final Result PATHOLOGY [facility] 3rd Floor [place], [place] [phone] * Airway (03/11/2024 2:19 PM TRANSONIC ENGINEER) Narrative Balta Johnson DO - 03/11/2024 2:19 PM TRANSONIC ENGINEER Balta Johnson DO ? 03/11/2024 ??2:19 PM [...] MD PhD ANESTHESIA ORDERABLES Final Result * [place] CRITICAL CARE ILL/INJURED PATIENT INIT 30-74 MIN (03/11/2024 1:57 PM TRANSONIC ENGINEER) Narrative Erasto Gomes MD - 03/11/2024 1:57 PM TRANSONIC ENGINEER Erasto Gomes MD ? 03/11/2024 ??2:01 PM [...] And Bilateral Iliofemoral Runoff (03/11/2024 12:52 PM TRANSONIC ENGINEER) Anatomical Region Laterality Modality Body Bilateral Computed Tomogra phy 03/11/2024 1:11 PM TRANSONIC ENGINEER Impressions 03/11/2024 1:45 PM TRANSONIC ENGINEER 1. ??Rectosigmoid colon viscus perforation/injury as evidenced [...] discussed with Elba Pal MD by Dr. Kyle on 1:00 PM at 03/03/2024 ?? Dictated by: Grzegorz Kyle MD The radiology attending physician has personally reviewed this study, and had reviewed and/or edited this written report and agrees with it. Electronically signed by: Shay Freitas MD Narrative 03/11/2024 1:45 PM TRANSONIC ENGINEER EXAMINATION: ??CT ANGIOGRAPHY OF THE ABDOMEN, PELVIS, [...] discussed with Elba Pal MD by Dr. Kyle on 1:00 PM at 03/03/2024 Dictated by: Grzegorz Kyle MD The radiology attending physician has personally reviewed this study, and had reviewed and/or edited this written report and agrees with it. Electronically signed by: Shay Freitas MD Antoine Hays MD IMG CT PROCEDURES Final R esult * (ABNORMAL) POC Blood Gas and Chemistries, Arterial - (03/11/2024 12:36 PM TRANSONIC ENGINEER) [facility] K POC 2.7(L) 3.3 - 4.9 mmol/L Comment: Interpretive Data Not all point of care methods assess for hemolysis. Confirm with instrument and retest K+ if not consistent with clinical signs and symptoms. Current Interpretive Data was last revised on 2023. Hct, POC 42.0 41.4 - 51.6 % [facility] Total Hb, POC 13.9 13.8 - 17.2 g/dL [facility] Blood 03/11/2024 12:3 6 PM TRANSONIC ENGINEER 03/11/2024 12:36 PM TRANSONIC ENGINEER Notinfile Unknown LAB POCT ORDERABLES - DEVICE F inal Result [facility] [place] [address] * (ABNORMAL) Thromboelastometry Panel - Heparin (03/11/2024 12:34 PM TRANSONIC ENGINEER) [facility] HEPTEM-CT 136(L) 141 - 215 sec HEPTEM-A5 43 33 - 51 mm [facility] HEPTEM-A10 53 44 - 61 mm [facility] HEPTEM-A20 59 52 - 67 mm [facility] HEPTEM-MCF 59 54 - 69 mm [facility] Blood 03/11/2024 12:3 4 PM TRANSONIC ENGINEER 03/11/2024 12:54 PM TRANSONIC ENGINEER us Jonathan Capone MD LAB BLOOD ORDERABLE S Edited Result - Final [facility] [place] [address] * (ABNORMAL) Thromboelastometry Panel - Intrinsic (03/11/2024 12:34 PM TRANSONIC ENGINEER) Pathologist [facility] INTEM-CT 135(L) 139 - 205 sec INTEM-A5 44 36 - 54 mm [facility] INTEM-A10 54 46 - 63 mm [facility] INTEM-A20 59 53 - 68 mm [facility] INTEM-MCF 59 55 - 70 mm [facility] INTEM-LI60 94 93 - 100 % [facility] INTEM-ML 9(H) 0 - 7 % [facility] Blood 03/11/2024 12:3 4 PM TRANSONIC ENGINEER 03/11/2024 12:54 PM TRANSONIC ENGINEER Jonathan Capone MD LAB BLOOD ORDERABLE S Edited Result - Final Performing Organization Address City/[facility]/ZIP Co de Phone Number [facility] Department [place] [address] * Thromboelastometry Panel - Fibrinogen (03/11/2024 12:34 PM TRANSONIC ENGINEER) [facility] FIBTEM-A5 8 5 - 16 mm FIBTEM-A10 9 6 - 17 mm [facility] FIBTEM-A20 10 6 - 18 mm [facility] FIBTEM-MCF 10 9 - 19 mm [facility] Blood 03/11/2024 12:3 4 PM TRANSONIC ENGINEER 03/11/2024 12:54 PM TRANSONIC ENGINEER Jonathan Capone MD LAB BLOOD ORDERABLE S Edited Result - Final [facility] [place] [address] * (ABNORMAL) Thromboelastometry Panel - Extrinsic (03/11/2024 12:34 PM TRANSONIC ENGINEER) Pathologist [facility] EXTEM-CT 58 51 - 73 sec EXTEM-A5 45 33 - 52 mm [facility] EXTEM-A10 55 45 - 62 mm [facility] EXTEM-A20 60 54 - 69 mm [facility] EXTEM-MCF 61 57 - 72 mm [facility] EXTEM-LI60 95 94 - 100 % [facility] EXTEM-ML 7(H) 0 - 6 % [facility] Blood 03/11/2024 12:3 4 PM TRANSONIC ENGINEER 03/11/2024 12:54 PM TRANSONIC ENGINEER us Jonathan Capone MD LAB BLOOD ORDERABLE S Edited Result - Final ROMAN CHATTERJEE [facility] [place] [address] * eGFR (03/11/2024 12:34 PM TRANSONIC ENGINEER) eGFR 74 >=60 mL/min/1. 73 m2 Comment: [...] reviewed 2021. Blood 03/11/2024 12:3 4 PM TRANSONIC ENGINEER 03/11/2024 12:59 PM TRANSONIC ENGINEER Jonathan Capone MD LAB BLOOD ORDERABLE S Final Result [facility] [place] [address] * (ABNORMAL) Differential, auto (03/11/2024 12:34 PM TRANSONIC ENGINEER) Neutrophil abs 3.5 1.5 - 6.5 K/cumm Imm gran abs 0.1 0.0 - 0.1 K/cumm [facility] Lymphocyte abs 4.9(H) 0.8 - 3.3 K/cumm [facility] Monocyte abs 0.7 0.2 - 0.8 K/cumm [facility] Eosinophil abs 0.1 0.0 - 0.5 K/cumm [facility] Basophil abs 0.0 0.0 - 0.1 K/cumm [facility] Neutrophil pct 37.6 % [facility] Comment: Interpretive Data Percent cell count reference ranges are not reported, since discordance with absolute values may lead to misinterpretation of CBC data. Current Interpretive Data was last revised on 2017. Imm gran pct 0.5 % [facility] Comment: Interpretive Data Percent cell count reference ranges are not reported, since discordance with absolute values may lead to misinterpretation of CBC data. Current Interpretive Data was last revised on 2017. Lymphocyte pct 52.5 % [facility] Comment: Interpretive Data Percent cell count reference ranges are not reported, since discordance with absolute values may lead to misinterpretation of CBC data. Current Interpretive Data was last revised on 2017. Monocyte pct 7.6 % [facility] Comment: Interpretive Data Percent cell count reference ranges are not reported, since discordance with absolute values may lead to misinterpretation of CBC data. Current Interpretive Data was last revised on 2017. Eosinophil pct 1.4 % [facility] Comment: Interpretive Data Percent cell count reference ranges are not reported, since discordance with absolute values may lead to misinterpretation of CBC data. Current Interpretive Data was last revised on 2017. Basophil pct 0.4 % [facility] Comment: Interpretive Data Percent cell count reference ranges are not reported, since discordance with absolute values may lead to misinterpretation of CBC data. Current Interpretive Data was last revised on 2017. Blood 03/11/2024 12:3 4 PM TRANSONIC ENGINEER 03/11/2024 12:59 PM TRANSONIC ENGINEER us Jonathan Capone MD LAB BLOOD ORDERABLE S Final Result Performing Organization Address City/[facility]/ZIP Co de Phone Number [facility] [place] [address] * POCT glucose (03/11/2024 12:34 PM TRANSONIC ENGINEER) [facility] Glucose, POC 132 70 - 199 mg/dL Blood 03/11/2024 12:3 4 PM TRANSONIC ENGINEER 03/11/2024 12:34 PM TRANSONIC ENGINEER Erasto Gomes MD LAB POCT ORDERABLES - D EVICE Final Result Performing Organization Address [facility] Co de Phone Number [facility] [place] [address] * (ABNORMAL) CBC with auto differential (03/11/2024 12:34 PM TRANSONIC ENGINEER) [facility] WBC 9.4 3.8 - 9.9 K/cumm Hgb 14.0 13.0 - 17.5 g/dL [facility] Hct 41.4 38.9 - 50.3 % [facility] Plt 316 150 - 400 K/cumm [facility] MPV 9.7 9.1 - 12.3 fL [facility] RBC 4.90 4.30 - 5.80 M/cumm [facility] MCV 84.5 81.3 - 96.4 fL [facility] MCH 28.6 27.1 - 33.3 pg [facility] MCHC 33.8 32.3 - 35.7 g/dL [facility] RDW CV 11.0(L) 11.1 - 14.9 % [facility] RDW SD 34.0(L) 35.7 - 48.1 fL [facility] NRBC abs 0.00 0.00 - 0.01 K/cumm [facility] Blood (Blood, Venous) 03/11/2024 12:34 PM TRANSONIC ENGINEER 03/11/2024 12:59 PM TRANSONIC ENGINEER Erasto Gomes MD LAB BLOOD ORDERABLES Fi nal Result [facility] [place] [address] * ABO/Rh (03/11/2024 12:34 PM TRANSONIC ENGINEER) ABO Rh B Positive Blood 03/11/2024 12:3 4 PM TRANSONIC ENGINEER 03/11/2024 1:10 PM TRANSONIC ENGINEER Esther Bautista DO LAB BLOOD BANK TEST ORDERABLES Final Result Performing Organization Address [facility] Co de Phone Number [facility] [place] [address] * (ABNORMAL) aPTT (03/11/2024 12:34 PM TRANSONIC ENGINEER) aPTT 18(L) 28 - 38 sec Comment: No clot detected in sample - [id number] - 03/11/24, 1:26 PM Interpretive Data Heparin therapeutic range: 66.0 - 100.0 seconds. Range based on correlation with therapeutic heparin activity range of 0.3 - 0.7 Units/mL. Current interpretive data was last revised on 2022. Blood 03/11/2024 12:3 4 PM TRANSONIC ENGINEER 03/11/2024 1:05 PM TRANSONIC ENGINEER Erasto Gomes MD LAB BLOOD ORDERABLES Fi nal Result Performing Organization Address [facility] Co de Phone Number [facility] [place] [address] * Protime-INR (03/11/2024 12:34 PM TRANSONIC ENGINEER) PT 11.9 9.7 - 13.0 sec Comment:No clot detected in sample - [id number] - 03/11/24, 1:26 PM INR 1.10 0.90 - 1.20 [facility] Comment: Interpretive data Oral anticoagulant therapeutic ranges: Venous thromboembolism prophylaxis or treatment: 2.0-3.0 CARDIOLOGY Standard range: 2.0-3.0 High-intensity range: 2.5-3.5 Refer to indication-specific guidelines for appropriate target ranges for prosthetic heart valve replacement. Current interpretive data was last revised on 2019. Blood 03/11/2024 12:3 4 PM TRANSONIC ENGINEER 03/11/2024 1:05 PM TRANSONIC ENGINEER Erasto Gomes MD LAB BLOOD ORDERABLES Fi nal Result Performing Organization Address [facility] [place] [address] * Antibody screen (03/11/2024 12:34 PM TRANSONIC ENGINEER) [place], indirect Negative Blood 03/11/2024 12:3 4 PM TRANSONIC ENGINEER 03/11/2024 1:10 PM TRANSONIC ENGINEER Esther Bautista DO LAB BLOOD BANK TEST ORDERABLES Final Result Performing Organization Address [facility] Co de Phone Number [facility] [place] [address] * Blood gas, venous (03/11/2024 12:34 PM TRANSONIC ENGINEER) pH, Venous 7.41 7.32 - 7.43 PCO2, Venous 40 40 - 50 mmHg [facility] PO2, Venous 37 mmHg [facility] Comment: Interpretive Data No Reference Range Established Current Interpretive Data was last revised on 2017. HCO3 Venous, Calculated 26 20 - 30 mmol/L [facility] BE, venous 0 mmol/L [facility] Comment: Interpretive Data No Reference Range Established Current Interpretive Data was last revised on 2017. Blood 03/11/2024 12:3 4 PM TRANSONIC ENGINEER 03/11/2024 12:46 PM TRANSONIC ENGINEER Erasto Gomes MD LAB BLOOD ORDERABLES Fi nal Result Performing Organization Address [facility] Co de Phone Number [facility] [place] [address] * Ethanol (03/11/2024 12:34 PM TRANSONIC ENGINEER) Ethanol <10 <=10 mg/dL Comment: Interpretive Data Legal limit of intoxication > or = 80 mg/dL Levels > or = 400 mg/dL are potentially TOXIC. Current interpretive data was last revised on 2018. Blood 03/11/2024 12:3 4 PM TRANSONIC ENGINEER 03/11/2024 12:59 PM TRANSONIC ENGINEER us Erasto Gomes MD LAB BLOOD ORDERABLES Fi nal Result Performing Organization Address [facility] Co de Phone Number [facility] [place] [address] * (ABNORMAL) Basic metabolic panel (03/11/2024 12:34 PM TRANSONIC ENGINEER) Sodium 140 135 - 145 mmol/L Potassium, pl 3.5 3.3 - 4.9 mmol/L [facility] Comment:Hemolyzed; Potassium value may be falsely elevated by as much as 0.6-1.0 mmol/L. Suggest redraw and reanalysis. Chloride 98 97 - 110 mmol/L [facility] CO2 22 22 - 32 mmol/L [facility] Anion gap 20(H) 2 - 15 mmol/L [facility] BUN 16 6 - 25 mg/dL [facility] Creatinine 1.38(H) 0.80 - 1.30 mg/dL [facility] Glucose 132 70 - 199 mg/dL [facility] Comment: Interpretive Data Fasting glucose >/= 126 [...] 2022. Calcium 9.7 8.5 - 10.3 mg/dL [facility] Blood 03/11/2024 12:3 4 PM TRANSONIC ENGINEER 03/11/2024 12:59 PM TRANSONIC ENGINEER us Erasto Gomes MD LAB BLOOD ORDERABLES Fi nal Result [facility] [place] [address] from Last 3 Months Insurance [facility] PLAN MCKIN[place] HERNANDEZ [id number] [facility] PLAN [place]DE[place] [id number] Advance Directives For more information, please contact: [phone] * Full Code (Latest Code Status on File) Date Activated Date Inactivated Comments 03/11/2024 7:25 PM 03/18/2024 8:10 PM * Full Code Date Activated Date Inactivated Comments 06/30/2019 9:27 PM 07/02/2019 10:26 AM Care Teams Alarm Security Or Surveillance Monitor Relationship Specialty Start Date End Date Ele Canas MD [address] [place] [id number] PCP - General Family Medicine 10/20/21
--- OUTSIDE RECORDS SUMMARY | 2024-03-26 02:07 | XMS_ITS | Encounter Summary ---
Author Organization [facility] Healthcare Address [address] [place] [address] Care Team Providers Care Orthodontic Band Maker Name Role Phone Ele Canas MD Primary Care Provide r Encounter Details Date Type Department Care Team (Late st Contact Info) Description 10/21/[address] [address] Krupa Wood RN Social History Tobacco Use Types Packs/Day Years Used Date Smoking Tobacco: Never Alcohol Use Standard Drinks/Week Comments Yes 0 (1 standard drink = 0.6 oz pur e alcohol) occasional Sex and Gender Information Value Date Recorded Sex Assigned at Not on file Legal Sex Male 1:47 PM CDT Gender Identity Not on file Sexual Orientation Not on file documented as of this encounter ED Notes * Krupa Wood RN - 10/21/2021 1:42 PM CDT This RN spoke with the pt mother who states the pt is not available at this time. Call back number provided if he wishes to call back. Krupa Wood RN 10/21/21 1342 documented in this encounter Plan of Treatment Not on file documented as of this encounter Visit Diagnoses Not on filedocumented in this encounter Care Teams Orthodontic Band Maker Relationship Specialty Start Date End Date Ele Canas MD [address] [place] [id number] PCP - General Family Medicine 10/20/21 documented as of this encounter
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
--- OUTSIDE RECORDS SUMMARY | 2024-03-26 02:07 | XMS_ITS | Encounter Summary ---
Author Organization [facility] Healthcare Address [address] [place] [address] Care Team Providers Care Communications Programmer Name Role Phone Ele Canas MD Primary Care Provide r Reason for Visit * Reason Comments Abdominal Pain Encounter Details Date Type Department Care Team (Late st Contact Info) Description 10/20/2021 11:44 AM CDT - 10/20/2021 2:47 PM CDT Emergency [address] [address] John Pryor MD [address] [place] [id number] Colitis (Primary Dx) Discharge Disposition: Discharge to home or self care Social History Tobacco Use Types Packs/Day Years Used Date Smoking Tobacco: Never Alcohol Use Standard Drinks/Week Comments Yes 0 (1 standard drink = 0.6 oz pur e alcohol) occasional Sex and Gender Information Value Date Recorded Sex Assigned at Not on file Legal Sex Male 1:47 PM CDT Gender Identity Not on file Sexual Orientation Not on file documented as of this encounter Last Filed Vital Signs Vital Sign Reading Time Taken Comments Blood Pressure 151/74 10/20/2021 2:30 PM CDT Pulse 78 10/20/2021 2:30 PM CDT Temperature 36.9 ??C (98.4 ??F) 10/20/2021 12:08 PM C DT Respiratory Rate 18 10/20/2021 2:30 PM CDT Oxygen Saturation 99% 10/20/2021 2:30 PM CDT Inhaled Oxygen Concentration - - Weight 94.3 kg (208 lb) 10/20/2021 7:53 AM CDT Height 182.9 cm (6') 10/20/2021 7:53 AM CDT Body Mass Index 28.21 10/20/2021 7:53 AM CDT documented in this encounter Discharge Instructions * Discharge Instructions* John Pryor MD - 10/20/2021 2:22 PM CDT Fabricio, use the Flagyl and cefpodoxime antibiotics as prescribed and complete the entire course. Use the Newton as needed for pain. Use the Zofran as needed for nausea. Please follow-up with her institutional research director Dr. Ugarte. We have a work note that you may resume work next week on Wednesday. If you have any worsening symptoms this week please return to our emergency department. * Attachments The following attachments cannot be sent through Care Everywhere. * Colitis (AfterCare(R) Instructions(ER/ED)) (Slovenian) documented in this encounter Medications at Time of Discharge HYDROcodone-acetamin ophen (NORCO) 5-325 mg per tabletIndications:Pa in Take 1 tablet by mouth every 6 (six) hours as needed for pain for up to 14 doses 14 tablet 10/20/2021 cefpodoxime (VANTIN) 100 mg tablet Take 1 tablet (100 mg total) by mouth 2 (two) times a day for 7 days 14 tablet 10/20/2021 2 metroNIDAZOLE (FLAGYL) 500 mg tablet Take 1 tablet (500 mg total) by mouth 3 (three) times a day 21 tablet 10/20/2021 5 ondansetron ODT (ZOFRAN-ODT) 4 mg disintegrating tablet Take 1 tablet (4 mg total) by mouth every 8 (eight) hours as needed for nausea or vomiting 20 tablet 10/20/2021 5 documented as of this encounter Ordered Prescriptions Prescription Sig Dispense Quantity Refills Last Filled Start Date End Date HYDROcodone-acetamin ophen (NORCO) 5-325 mg per tabletIndications:Pa in Take 1 tablet by mouth every 6 (six) hours as needed for pain for up to 14 doses 14 tablet 10/20/2021 cefpodoxime (VANTIN) 100 mg tablet Take 1 tablet (100 mg total) by mouth 2 (two) times a day for 7 days 14 tablet 10/20/2021 2 metroNIDAZOLE (FLAGYL) 500 mg tablet Take 1 tablet (500 mg total) by mouth 3 (three) times a day 21 tablet 10/20/2021 5 ondansetron ODT (ZOFRAN-ODT) 4 mg disintegrating tablet Take 1 tablet (4 mg total) by mouth every 8 (eight) hours as needed for nausea or vomiting 20 tablet 10/20/2021 5 documented in this encounter Discharge Disposition Disposition Code Departure Means Destination Discharge to home or self care documented in this encounter ED Notes * John Pryor MD - 10/20/2021 12:05 PM CDT HPI Chief Complaint Patient presents with ??? Abdominal Pain HPI 2:29 PM Brice Corrales is a 21 y.o. male presenting to the ED c/o abdominal pain. Pain is located in left lower quadrant. He has associated diarrhea. Symptoms been off and on since the 12 of October.He was seen at an outside hospital 16 of October and treated for diarrhea. He notice symptoms improved but have now returned. He has had decreased intake of food and water. He denies any blood in thestool. Patient History: History reviewed. No pertinent past medical history. History reviewed. No pertinent surgical history. History reviewed. No pertinent family history. Social History Tobacco Use ??? Smoking status: Never Smoker ??? Smokeless tobacco: None Substance and Sexual Activity ??? Drug use: Yes Frequency: 3.0 times per week Types: Marijuana ??? Sexual activity: Yes Partners: Female control/protection: Condom Male Alcohol Use: Not on file Current Facility-Administered Medications: ??? ondansetron (ZOFRAN) injection 4 mg, 4 mg, intravenous, Once ??? sodium chloride 0.9% bolus 1,000 mL, 1,000 mL, intravenous, Once, Last Rate: 1,000 mL/hr at 10/20/21 1345, 1,000 mL at 10/20/21 1345 Current Outpatient Medications: ??? cefpodoxime (VANTIN) 100 mg tablet ??? HYDROcodone-acetaminophen (NORCO) 5-325 mg per tablet ??? metroNIDAZOLE (FLAGYL) 500 mg tablet ??? ondansetron ODT (ZOFRAN-ODT) 4 mg disintegrating tablet Review of Systems Review of Systems All other systems reviewed and are negative. All systems reviewed and are neg or non contributory for this patients presentation today other than as stated in the HPI . Physical Exam ED Triage Vitals [10/20/21 0753] Temp Pulse Resp BP SpO2 36.7 ??C (98.1 ??F) 62 18 142/77 100 % Temp src Heart Rate Source Patient Position BP Location FiO2 (%) Oral Monitor Sitting Right arm -- Height Height Method Weight Weight Method 1.829 m (6') Stated 94.3 kg (208 lb) Stated Physical Exam Vitals reviewed. Constitutional: Appearance: He is normal weight. HENT: Head: Normocephalic. Cardiovascular: Rate and Rhythm: Normal rate and regular rhythm. Heart sounds: Normal heart sounds. Pulmonary: Breath sounds: Normal breath sounds. Abdominal: Palpations: Abdomen is soft. Tenderness: There is abdominal tenderness in the left lower quadrant. Skin: General: Skin is warm. Neurological: General: No focal deficit present. Mental Status: He is alert. Psychiatric: Mood and Affect: Mood normal. Procedures MDM Labs Reviewed URINALYSIS AND REFLEX TO MICROSCOPIC AND CULTURE - Abnormal Result Value Color, ur Yellow Clarity, ur Clear Specific gravity, ur <1.005 pH, urine 7.0 Protein, ur ql Trace Glucose, ur ql Negative Ketones, ur 1+ (*) Bilirubin, ur Negative Blood, ur Negative Urobilinogen, ur <2.0 Nitrite, ur Negative Leukocyte esterase, ur 1+ (*) UA reflex comment Reflex to microscopic UA will be performed. Narrative: Urine pH is affected by diet, medications, systemic acid-base disturbances, and renal tubular function. pH may affect urinary stone formation. For example, urine pH below 6.0 may help reduce the tendency for calcium phosphate stones and pH greater than 6.0 may reduce the tendency for uric acid stone formation. Source: [employer].Last revised 03-25-2017 CBC WITH AUTO DIFFERENTIAL - Abnormal WBC 4.0 Hgb 14.8 Hct 43.5 Plt 266 MPV 9.2 RBC 5.10 MCV 85.3 MCH 29.0 MCHC 34.0 RDW CV 10.8 (*) RDW SD 33.8 (*) NRBC abs 0.00 COMPREHENSIVE METABOLIC PANEL - Abnormal Sodium 138 Potassium, pl 3.6 Chloride 101 CO2 27 Anion gap 10 BUN 10 Creatinine 1.40 (*) Glucose 91 Calcium 9.7 Bilirubin, total 0.7 Protein, pl 7.2 Albumin 4.6 Alk phos 72 ALT 15 AST 17 LIPASE - Abnormal Lipase 187 (*) DIFFERENTIAL AUTO - Abnormal Neutrophil abs 1.5 (*) Imm gran abs 0.0 Lymphocyte abs 1.8 Monocyte abs 0.3 Eosinophil abs 0.4 Basophil abs 0.0 Neutrophil pct 37.1 Imm gran pct 0.3 Lymphocyte pct 45.5 Monocyte pct 6.8 Eosinophil pct 9.3 Basophil pct 1.0 EGFR eGFR 74 URINALYSIS, MICROSCOPIC ONLY WBC, ur 0-5 RBC, ur 0-2 Culture Reflex Comment Value: Reflex conditions for urine culture (WBC >10) not met. ETHANOL Ethanol <[address] Abdomen Pelvis W Contrast Final Result BP 127/58 Pulse 62 Temp 36.9 ??C (98.4 ??F) (Oral) Resp 18 Ht 182.9 cm (6') Wt 94.3 kg (208 lb) SpO2 99% BMI 28.21 kg/m?? [facility] ED Course as of 10/20/21 1429 Time: 10/20 1210 Comment: CT abd/pelvis: IMPRESSION: ? 1. Duodenal and proximal small bowel thickening, suspect enteritis. Pancreas is unremarkable. ?? 2. Borderline dilated appendix measuring 0.6 cm with wall enhancement. Nonspecific possibly mild uncomplicated appendicitis in the appropriate clinical setting. ?? 3. Nonspecific diffuse colon wall thickening, nondistention versus uncomplicated colitis. ?? 4. Suboptimal evaluation due to motion. ?? By: John Pryor MD Time: 08/08 1219 Comment: Patient with signs and symptoms colitis confirmed with CT scan differential diagnosis includes infectious versus inflammatory. Patient has no tenderness right lower quadrant making appendicitis very unlikely from a clinical standpoint. By: John Pryor MD Time: 10/20 122 Comment: Patient with creatinine 1.4. Will give IV fluid in the emergency department. Lipase 187 unlikely to be due to pancreatitis in his clinical setting with no tenderness of the epigastric area and normal CT scan of the pancreas. By: John Pryor MD Time: 10/20 1421 Comment: Patient feeling improved after IV fluid. By: John Pryor MD Time: 10/20 1425 Comment: Discussed with pharmacy outpatient oral antibiotics combination of cephalosporin and Flagyl. Also will have patient follow-up with gastroenterology. By: John Pryor MD This examination was transcribed using the [employer] voice recognition system without human fish header. In an effort to expedite patient care, this report has not been adjusted for typographical, grammatical, and syntax by a trained medical collections. Clinical Impression: Colitis John Pryor MD 10/20/21 142 * Yanet Alcala RN - 10/20/2021 12:05 PM CDT Pt aox4, CC/abdominal pain since 10/12 states that he ate some chicken that was not fully cooked andfelt sick after. Was seen at another facility and was diagnosed with colitis pt states that he was feeling better until this morning and that is when he decided to come in. States he was was having diarrhea x1 today and vomited in CT after the contrast dye. Denies chest pain and shortness of breath. Yanet Alcala, ZENIA 10/20/21 1207 * Laura Hurley RN - 10/20/2021 7:56 AM CDT Pt BIBEMS with c/o lower abdominal pain with worse pain to LLQ intermittently since 10/12. Reports he was seen at [facility] and was told it's possibly food poisoning. Reports diarrhea this morning. Denies blood in stool, urinary symptoms, n/v, fever or chills. documented in this encounter Plan of Treatment Pending Results Name Type Priority Associated Diagnoses Date /Time Ethanol Lab STAT 10/20/2021 8:0 7 AM CDT Scheduled Orders Name Type Priority Associated Diagnoses Orde r Schedule Ethanol Lab STAT Once for 1 Occ urrences starting 10/20/2021 until 10/20/2021 documented as of this encounter Procedures Procedure Name Priority Date/Time Associated Diagnosis Comments URINALYSIS AND REFLEX TO MICROSCOPIC AND CULTURE STAT 10/20/2021 10:58 AM CDT URINALYSIS, MICROSCOPIC ONLY STAT 10/20/2021 10:[address] ABDOMEN PELVIS W CONTRAST ED 10/20/2021 10:50 AM CDT EGFR STAT 10/20/2021 8:07 AM CDT DIFFERENTIAL AUTO STAT 10/20/2021 8:0 7 AM CDT CBC WITH AUTO DIFFERENTIAL STAT 10/20/2021 8:07 AM CDT LIPASE STAT 10/20/2021 8:07 AM CDT ETHANOL STAT 10/20/2021 8:07 AM CDT COMPREHENSIVE METABOLIC PANEL STAT 10/20/2021 8:07 AM CDT documented in this encounter Results * Urinalysis, microscopic only (10/20/2021 10:58 AM CDT) WBC, ur 0-5 0 - 5 /HPF [facility] RBC, ur 0-2 0 - 2 /HPF [facility] Culture Reflex Comment Reflex conditions for urine culture (WBC >10) not met. [facility] Urine 10/20/2021 10:5 8 AM CDT 10/20/2021 11:09 AM CDT Corrine Hopkins DO LAB URINE ORDERABLES Final Resu lt [facility] [address] [facility] Department [place] [address] * (ABNORMAL) Urinalysis reflex to microscopic and culture Urine (10/20/2021 10:58 AM CDT) Color, ur Yellow Yellow [facility] Clarity, ur Clear Clear [facility] Specific gravity, ur <1.005 1.003 - 1.030 [facility] pH, urine 7.0 [facility] Protein, ur ql Trace Negative [facility] Glucose, ur ql Negative Negative [facility] Ketones, ur 1+(A) Negative [facility] Bilirubin, ur Negative Negative [facility] Blood, ur Negative Negative [facility] Urobilinogen, ur <2.0 <2.0 mg/dL [facility] Nitrite, ur Negative Negative [facility] Leukocyte esterase, ur 1+(A) Negative [facility] UA reflex comment Reflex to microscopic UA will be performed. [facility] Urine 10/20/2021 10:5 8 AM CDT 10/20/2021 11:09 AM CDT Narrative CERNER - 10/20/2021 11:20 AM CDT ?? Urine pH is affected by diet, medications, systemic acid-base disturbances, and renal tubular function. ??pH may affect urinary stone formation. ??For example, urine pH below 6.0 may help reduce the tendency for calcium phosphate stones and pH greater than 6.0 may reduce the tendency for uric acid stone formation. Source: [employer]. Last revised 03-25-2017 Corrine Hopkins DO LAB MICROBIOLOGY - [facility] RUDDY GRANT Final Result [facility] [address] [facility] Department [place] [address] * CT Abdomen Pelvis W Contrast (10/20/2021 10:50 AM CDT) Anatomical Region Laterality Modality Body N/A Computed Tomogra phy 10/20/2021 11:1 6 AM CDT Narrative 10/20/2021 11:47 AM CDT EXAM DESCRIPTION: ?? CT ABDOMEN PELVIS W CONTRAST REASON FOR STUDY: ?? Pancreatitis, acute, critically ill ?? c/o lower abdominal pain with worse pain to LLQ intermittently since 10/12. Reports he was seen at [facility] and was told it's possibly food poisoning. Reports diarrhea this morning. ?? No abdominal surgeries ?? Patient vomited during scan. ??Rescanned due to motion. ?? TECHNIQUE: CT scan of the abdomen and pelvis performed with intravenous and ?? without ??oral contrast using helical scanning technique with dynamic intravenous contrast injection. Reconstructed coronal and sagittal MPR images reviewed. All images stored on PACS. Automated exposure control was used as a dose optimization technique for this examination. CONTRAST TYPE/DOSE: ?? 100mL of IOVERSOL 350 MG IODINE/ML INTRAVENOUS SYRINGE ?? injected via ?? intravenous COMPARISON: ?? Chest abdomen pelvis CT 06/30/2019 FINDINGS: Motion artifact with repeat sequences obtained. LOWER CHEST: ?? No significant pulmonary abnormalities. No effusion. LIVER: ?? Normal size. ??No identified cystic or solid masses. GALLBLADDER: ?? Unremarkable BILE DUCTS: ?? No intrahepatic or extrahepatic ductal dilatation. SPLEEN: ?? Normal size. ??No focal lesions. PANCREAS: ?? No identified cystic or solid masses. No significant calcifications. No adjacent inflammation or peripancreatic fluid collections. Pancreatic duct not dilated. ?? ADRENALS: ?? Unremarkable KIDNEYS/URINARY TRACT: ?? No identified significant cystic or solid masses. No visualized stones. No hydronephrosis or hydroureter. Symmetric enhancement. ? Urinary bladder is unremarkable. GI: ?? Gastroesophageal junction and stomach are unremarkable. ??Thickening of the 2nd and 3rd segments of the duodenum and proximal small bowel in the left upper abdomen. ??Nonspecific but could represent enteritis. ??Small bowel is normal diameter with no obstruction. ??The appendix is with borderline dilated measuring 0.6 cm with slightly thickened enhancing wall, series 5, image number 28. ??No intraluminal air within the appendix. ??No significant yodit-appendical inflammatory stranding or lymphadenopathy. ??Diffuse colon wall thickening most prominently involving ascending and transverse colon which is suboptimally evaluated due to motion. ??Possibly nondistention versus is colitis. ??No perforation or abscess. PERITONEUM: ?? No ascites or free air. RETROPERITONEUM: ?? No mass or adenopathy. REPRODUCTIVE: ?? No significant abnormality. VASCULATURE: ?? No abdominal aortic aneurysm. MUSCULOSKELETAL: ?? No significant abnormality. OTHER: ?? No other abnormality. IMPRESSION: ?? 1. ?? Duodenal and proximal small bowel thickening, suspect enteritis. ?? Pancreas is unremarkable. 2. ?? Borderline dilated appendix measuring 0.6 cm with wall enhancement. ?? Nonspecific possibly mild uncomplicated appendicitis in the appropriate clinical setting. 3. ?? Nonspecific diffuse colon wall thickening, nondistention versus uncomplicated colitis. 4. ?? Suboptimal evaluation due to motion. THIS IS AN ELECTRONICALLY VERIFIED FINAL REPORT 10/20/2021 11:47 AM - Electronically signed by ??Markie Bell M.D. AG D: ??10/20/2021 11:47 AM T: Report ID: [id number] Reading Location: ??[id number] Procedure Note Markie Bell MD - 10/20/2021 EXAM DESCRIPTION: CT ABDOMEN PELVIS W CONTRAST REASON FOR STUDY: Pancreatitis, acute, critically ill c/o lower abdominal pain with worse pain to LLQ intermittently since 10/12. Reports he was seen at [facility] and was told it's possibly food poisoning. Reports diarrhea this morning. No abdominal surgeriesPatient vomited during scan. Rescanned due to motion. TECHNIQUE: CT scan of the abdomen and pelvis performed with intravenousand without oral contrast using helical scanning technique with dynamic intravenous contrast injection. Reconstructed coronal and sagittal MPRimages reviewed. All images stored on PACS. Automated exposure control was used as a dose optimization technique forthis examination. CONTRAST TYPE/DOSE: 100mL of IOVERSOL 350 MG IODINE/ML INTRAVENOUSSYRINGE injected via intravenous COMPARISON: Chest abdomen pelvis CT 06/30/2019 FINDINGS: Motion artifact with repeat sequences obtained. LOWER CHEST: No significant pulmonary abnormalities. No effusion. LIVER: Normal size. No identified cystic or solid masses. GALLBLADDER: Unremarkable BILE DUCTS: No intrahepatic or extrahepatic ductal dilatation. SPLEEN: Normal size. No focal lesions. PANCREAS: No identified cystic or solid masses. No significant calcifications. No adjacent inflammation or peripancreatic fluidcollections. Pancreatic duct not dilated. ADRENALS: Unremarkable KIDNEYS/URINARY TRACT: No identified significant cystic or solid masses.No visualized stones. No hydronephrosis or hydroureter. Symmetricenhancement. Urinary bladder is unremarkable. GI: Gastroesophageal junction and stomach are unremarkable. Thickeningof the 2nd and 3rd segments of the duodenum and proximal small bowel in theleft upper abdomen. Nonspecific but could represent enteritis. Small bowel is normal diameter with no obstruction. The appendix is with borderlinedilated measuring 0.6 cm with slightly thickened enhancing wall, series 5, image number 28. No intraluminal air within the appendix. No significant yodit-appendical inflammatory stranding or lymphadenopathy. Diffuse colonwall thickening most prominently involving ascending and transverse colon whichis suboptimally evaluated due to motion. Possibly nondistention versus is colitis. No perforation or abscess. PERITONEUM: No ascites or free air. RETROPERITONEUM: No mass or adenopathy. REPRODUCTIVE: No significant abnormality. VASCULATURE: No abdominal aortic aneurysm. MUSCULOSKELETAL: No significant abnormality. OTHER: No other abnormality. IMPRESSION: 1. Duodenal and proximal small bowel thickening, suspect enteritis. Pancreas is unremarkable. 2. Borderline dilated appendix measuring 0.6 cm with wall enhancement. Nonspecific possibly mild uncomplicated appendicitis in the appropriate clinical setting. 3. Nonspecific diffuse colon wall thickening, nondistention versus uncomplicated colitis. 4. Suboptimal evaluation due to motion. THIS IS AN ELECTRONICALLY VERIFIED FINAL REPORT 10/20/2021 11:47 AM - Electronically signed by Markie Bell M.D. T: Report ID: [id number] Reading Location: [id number] Corrine Hopkins DO IMG CT PROCEDURES Final Result * Ethanol (10/20/2021 8:07 AM CDT) Ethanol <10 <=10 mg/dL [facility] SELF Comment: Interpretive Data Legal limit of intoxication > or = 80 mg/dL Levels > or = 400 mg/dL are potentially TOXIC. Current interpretive data was last revised on 2018. Blood 10/20/2021 8:07 AM CDT 10/20/2021 8:11 AM CDT us Sally SEN LAB BLOOD ORDERABLES Final Resu lt [facility] [address] [facility] Department [place] [address] * eGFR (10/20/2021 8:07 AM CDT) eGFR 74 mL/min/1. 73 m2 [facility] SELF Comment: Interpretive Data Reference Interval Normal ?>/= [...] interpretive data was last reviewed 2021. Blood 10/20/2021 8:07 AM CDT 10/20/2021 8:11 AM CDT Corrine Hopkins DO LAB BLOOD ORDERABLES Final Resu lt [facility] [address] [facility] Department of Laboratories [place], [place] [id number] * (ABNORMAL) Differential, auto (10/20/2021 8:07 AM CDT) Neutrophil abs 1.5(L) 1.7 - 6.5 K/cumm [facility] Imm gran abs 0.0 0.0 - 0.1 K/cumm [facility] Lymphocyte abs 1.8 0.8 - 3.3 K/cumm [facility] Monocyte abs 0.3 0.2 - 0.8 K/cumm [facility] Eosinophil abs 0.4 0.0 - 0.5 K/cumm [facility] Basophil abs 0.0 0.0 - 0.1 K/cumm [facility] Neutrophil pct 37.1 % [facility] Comment: Interpretive Data Percent cell count reference ranges are not reported, since discordance with absolute values may lead to misinterpretation of CBC data. Current Interpretive Data was last revised on 2017. Imm gran pct 0.3 % [facility] Comment: Interpretive Data Percent cell count reference ranges are not reported, since discordance with absolute values may lead to misinterpretation of CBC data. Current Interpretive Data was last revised on 2017. Lymphocyte pct 45.5 % [facility] Comment: Interpretive Data Percent cell count reference ranges are not reported, since discordance with absolute values may lead to misinterpretation of CBC data. Current Interpretive Data was last revised on 2017. Monocyte pct 6.8 % [facility] Comment: Interpretive Data Percent cell count reference ranges are not reported, since discordance with absolute values may lead to misinterpretation of CBC data. Current Interpretive Data was last revised on 2017. Eosinophil pct 9.3 % [facility] Comment: Interpretive Data Percent cell count reference ranges are not reported, since discordance with absolute values may lead to misinterpretation of CBC data. Current Interpretive Data was last revised on 2017. Basophil pct 1.0 % [facility] Comment: Interpretive Data Percent cell count reference ranges are not reported, since discordance with absolute values may lead to misinterpretation of CBC data. Current Interpretive Data was last revised on 2017. Blood 10/20/2021 8:07 AM CDT 10/20/2021 8:11 AM CDT [facility] LAB BLOOD ORDERABLES Final Resu lt Performing Organization Address [facility] Co de Phone Number [address] [address] * (ABNORMAL) Lipase (10/20/2021 8:07 AM CDT) Pathologist [facility] Lipase 187(H) 10 - 99 Units/L [facility] Blood (Blood, Venous) 10/20/2021 8:07 AM CDT 10/20/2021 8:11 AM CDT [facility] LAB BLOOD ORDERABLES Final Resu lt Performing Organization Address City/[facility]/ZIP Co de Phone Number [address] [address] * (ABNORMAL) Comprehensive metabolic panel (10/20/2021 8:07 AM CDT) Pathologist [facility] Sodium 138 135 - 145 mmol/L [facility] Potassium, pl 3.6 3.3 - 4.9 mmol/L [facility] Chloride 101 97 - 110 mmol/L [facility] CO2 27 22 - 32 mmol/L [facility] Anion gap 10 2 - 15 mmol/L [facility] BUN 10 8 - 25 mg/dL [facility] Creatinine 1.40(H) 0.80 - 1.30 mg/dL [facility] Glucose 91 70 - 199 mg/dL [facility] Comment: Interpretive Data Fasting glucose >/= [...] classification and Diagnosis of Diabetes Diabetes Care 2017;40 (Suppl. 1):S11. Current interpretive data was last revised 2017. Calcium 9.7 8.5 - 10.3 mg/dL [facility] Bilirubin, total 0.7 0.1 - 1.2 mg/dL [facility] Protein, pl 7.2 6.5 - 8.5 g/dL [facility] Albumin 4.6 3.5 - 5.0 g/dL [facility] Alk phos 72 40 - 130 Units/L [facility] ALT 15 7 - 55 Units/L [facility] AST 17 10 - 50 Units/L [facility] Blood 10/20/2021 8:07 AM CDT 10/20/2021 8:11 AM CDT us Corrine Hopkins DO LAB BLOOD ORDERABLES Final Resu lt [facility] [id number] [facility] Department [place] [address] * (ABNORMAL) CBC with auto differential (10/20/2021 8:07 AM CDT) WBC 4.0 3.8 - 9.9 K/cumm [facility] Hgb 14.8 13.0 - 17.5 g/dL [facility] Hct 43.5 38.9 - 50.3 % [facility] Plt 266 150 - 400 K/cumm [facility] MPV 9.2 9.1 - 12.3 fL [facility] RBC 5.10 4.30 - 5.80 M/cumm [facility] MCV 85.3 81.3 - 96.4 fL [facility] MCH 29.0 27.1 - 33.3 pg [facility] MCHC 34.0 32.3 - 35.7 g/dL [facility] RDW CV 10.8(L) 11.1 - 14.9 % [facility] RDW SD 33.8(L) 35.7 - 48.1 fL [facility] NRBC abs 0.00 0.00 - 0.01 K/cumm [facility] Blood (Blood, Venous) 10/20/2021 8:07 AM CDT 10/20/2021 8:11 AM CDT us Corrine Hopkins DO LAB BLOOD ORDERABLES Final Resu lt [facility] [address] [facility] Department [place] [address] documented in this encounter Visit Diagnoses Diagnosis Colitis- Primary Other and unspecified noninfectious gastroenteritis and colitis documented in this encounter Administered Medications Inactive Administered Medications - up to 3 most recent administrations Medication Order MAR Action Action Date Dose Rate Site ampicillin-sulbacta m (UNASYN) 3 g in sodium chloride 0.9% 100 mL IVPB 3 g, intravenous, at 200 mL/hr, Administer over 30 Minutes, Once, On Wed10/20/21 at 1252, For 1 dose, Mini-Bag Plus bag, Indications: Abdominal/Pelvic InfectionIndication s:Abdominal/Pelvic Infection New Bag 10/20/2021 1:46 PM CDT 3 g 200 mL/hr ioversoL (OPTIRAY 350) syringe 100 mL 100 mL, intravenous, Once in imaging, contrast, Starting on Wed10/20/21 at 1050, For 1 dose Contrast Given 10/20/2021 10:51 AM CDT 100 mL sodium chloride 0.9% bolus 1,000 mL 1,000 mL, intravenous, Once, On Wed10/20/21 at 1110, For 1 dose New Bag 10/20/2021 12:10 PM CDT 1,000 mL sodium chloride 0.9% bolus 1,000 mL 1,000 mL, intravenous, at 1,000 mL/hr, Administer over 1 Hours, Once, On Wed10/20/21 at 1148, For 1 dose New Bag 10/20/2021 1:45 PM CDT 1,000 mL 1000 mL/hr Left Antecubital documented in this encounter Active and Recently Administered Medications Times are shown in CDT. Scheduled Medication Order 10/18/2021 10/19/2021 10/20/2021 ampicillin-sulbactam (UNASYN) 3 g in sodium chloride 0.9% 100 mL IVPB (COMPLETED) 3 g, intravenous, at 200 mL/hr, Administer over 30 Minutes, Once, On Wed10/20/21 at 1252, For 1 dose, Mini-Bag Plus bag, Indications: Abdominal/Pelvic Infection 1346 (New Bag - Prov ider: Yanet Alcala RN)1445 (Stopped - Provider: Yanet Alcala RN) ondansetron (ZOFRAN) injection 4 mg 4 mg, intravenous, Administer over 2 Minutes, Once, On Wed10/20/21 at 1148, For 1 dose, Indications: Nausea, Vomiting 1211 (Not Given - Pr ovider: Yanet Alcala RN - Reason: Patient/family refused) sodium chloride 0.9% bolus 1,000 mL (COMPLETED) 1,000 mL, intravenous, Once, On Wed10/20/21 at 1110, For 1 dose 1210 (New Bag - Prov ider: Yanet Alcala RN)1320 (Stopped - Provider: Yanet Alcala RN) sodium chloride 0.9% bolus 1,000 mL (COMPLETED) 1,000 mL, intravenous, at 1,000 mL/hr, Administer over 1 Hours, Once, On Wed10/20/21 at 1148, For 1 dose 1345 (New Bag - Prov ider: Yanet Alcala RN)1445 (Stopped - Provider: Yanet Alcala RN) PRN Medication Order 10/18/2021 10/19/2021 10/20/2021 ioversoL (OPTIRAY 350) syringe 100 mL (COMPLETED) 100 mL, intravenous, Once in imaging, contrast, Starting on Wed10/20/21 at 1050, For 1 dose 1051 (Contrast Given - Provider: Gabriela Perdomo, RT) documented in this encounter Orders Medications Ordered That Yoel ht Not Have Been Administered Count Last Ordered Date First Ordered Date ondansetron (ZOFRAN) injection 4 mg 1 10/20 IV Count Last Ordered Date First Orde red Date SALINE LOCK IV 1 10/20/2021 documented in this encounter Care Teams Communications 

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
--- OUTSIDE RECORDS SUMMARY | 2024-03-26 02:07 | XMS_ITS | Encounter Summary ---
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 03/11/2024 12:34 PM SUBJECT SCIENTIFIC RESEARCH CBC WITH AUTO DIFFERENTIAL STAT 03/11/2024 12:34 PM SUBJECT SCIENTIFIC RESEARCH ABO/RH STAT 03/11/2024 12:34 PM SUBJECT SCIENTIFIC RESEARCH APTT STAT 03/11/2024 12:34 PM SUBJECT SCIENTIFIC RESEARCH PROTIME-INR STAT 03/11/2024 12:34 PM SUBJECT SCIENTIFIC RESEARCH ANTIBODY SCREEN STAT 03/11/2024 12:34 PM SUBJECT SCIENTIFIC RESEARCH TYPE AND SCREEN STAT 03/11/2024 12:34 PM SUBJECT SCIENTIFIC RESEARCH BLOOD GAS, VENOUS STAT 03/11/2024 12:34 PM SUBJECT SCIENTIFIC RESEARCH ETHANOL STAT 03/11/2024 12:34 PM SUBJECT SCIENTIFIC RESEARCH BASIC METABOLIC PANEL STAT 03/11/2024 12:34 PM SUBJECT SCIENTIFIC RESEARCH documented in this encounter Results * eGFR (03/17/2024 9:47 PM SUBJECT SCIENTIFIC RESEARCH) eGFR >90 >=60 mL/min/1. 73 m2 Comment: [...] last reviewed 2021. Blood 03/17/2024 9:47 PM SUBJECT SCIENTIFIC RESEARCH 03/17/2024 10:41 PM SUBJECT SCIENTIFIC RESEARCH [facility] LAB BLOOD ORDERABLE S Final Result Performing Organization Address [facility] Co de Phone Number [facility] [place] [address] * (ABNORMAL) CBC without differential (03/17/2024 9:47 PM SUBJECT SCIENTIFIC RESEARCH) WBC 10.2(H) 3.8 - 9.9 K/cumm Hgb 11.3(L) 13.0 - 17.5 g/dL [facility] Hct 34.4(L) 38.9 - 50.3 % [facility] Plt 335 150 - 400 K/cumm [facility] MPV 9.2 9.1 - 12.3 fL [facility] RBC 3.98(L) 4.30 - 5.80 M/cumm [facility] MCV 86.4 81.3 - 96.4 fL [facility] MCH 28.4 27.1 - 33.3 pg [facility] MCHC 32.8 32.3 - 35.7 g/dL [facility] RDW CV 10.8(L) 11.1 - 14.9 % [facility] RDW SD 33.7(L) 35.7 - 48.1 fL [facility] NRBC abs 0.00 0.00 - 0.01 K/cumm [facility] Blood 03/17/2024 9:47 PM SUBJECT SCIENTIFIC RESEARCH 03/17/2024 10:41 PM SUBJECT SCIENTIFIC RESEARCH Esther Bautista DO LAB BLOOD ORDERABLE S Final Result Performing Organization Address City/[facility]/ZIP Co de Phone Number [facility] [place] [address] * Phosphorus (03/17/2024 9:47 PM SUBJECT SCIENTIFIC RESEARCH) Phosphorus, pl 2.9 2.3 - 4.5 mg/dL Blood 03/17/2024 9:47 PM SUBJECT SCIENTIFIC RESEARCH 03/17/2024 10:41 PM SUBJECT SCIENTIFIC RESEARCH [facility] BLOOD ORDERABLE S Final Result [facility] [employer] [place] [address] * Magnesium (03/17/2024 9:47 PM SUBJECT SCIENTIFIC RESEARCH) Pathologist [facility] Magnesium 2.0 1.4 - 2.5 mg/dL Blood 03/17/2024 9:47 PM SUBJECT SCIENTIFIC RESEARCH 03/17/2024 10:41 PM SUBJECT SCIENTIFIC RESEARCH [facility] LAB BLOOD ORDERABLE S Final Result Performing Organization Address [facility] Co de Phone Number [facility] [place] [address] * Basic metabolic panel (03/17/2024 9:47 PM SUBJECT SCIENTIFIC RESEARCH) Pathologist [facility] Sodium 135 135 - 145 mmol/L Potassium, pl 3.9 3.3 - 4.9 mmol/L [facility] Chloride 99 97 - 110 mmol/L [facility] CO2 28 22 - 32 mmol/L [facility] Anion gap 8 2 - 15 mmol/L [facility] BUN 9 6 - 25 mg/dL [facility] Creatinine 1.08 0.80 - 1.30 mg/dL [facility] Glucose 96 70 - 199 mg/dL [facility] Comment: Interpretive Data Fasting glucose >/= 126 [...] 2022. Calcium 9.6 8.5 - 10.3 mg/dL [facility] Blood 03/17/2024 9:47 PM SUBJECT SCIENTIFIC RESEARCH 03/17/2024 10:41 PM SUBJECT SCIENTIFIC RESEARCH Esther Bautista DO LAB BLOOD ORDERABLE S Final Result [facility] [place] [address] * eGFR (03/16/2024 9:38 PM SUBJECT SCIENTIFIC RESEARCH) eGFR >90 >=60 mL/min/1. 73 m2 Comment: [...] last reviewed 2021. Blood 03/16/2024 9:38 PM SUBJECT SCIENTIFIC RESEARCH 03/16/2024 10:45 PM SUBJECT SCIENTIFIC RESEARCH [facility] BLOOD ORDERABLE S Final Result Performing Organization Address City/[facility]/ZIP Co de Phone Number [facility] [place] [address] * (ABNORMAL) CBC without differential (03/16/2024 9:38 PM SUBJECT SCIENTIFIC RESEARCH) WBC 10.8(H) 3.8 - 9.9 K/cumm Hgb 11.4(L) 13.0 - 17.5 g/dL [facility] Hct 34.7(L) 38.9 - 50.3 % [facility] Plt 302 150 - 400 K/cumm [facility] MPV 9.5 9.1 - 12.3 fL [facility] RBC 4.07(L) 4.30 - 5.80 M/cumm [facility] MCV 85.3 81.3 - 96.4 fL [facility] MCH 28.0 27.1 - 33.3 pg [facility] MCHC 32.9 32.3 - 35.7 g/dL [facility] RDW CV 11.1 11.1 - 14.9 % [facility] RDW SD 34.5(L) 35.7 - 48.1 fL [facility] NRBC abs 0.00 0.00 - 0.01 K/cumm [facility] Blood 03/16/2024 9:38 PM SUBJECT SCIENTIFIC RESEARCH 03/16/2024 10:45 PM SUBJECT SCIENTIFIC RESEARCH [facility] LAB BLOOD ORDERABLE S Final Result [facility] [place] [address] * Phosphorus (03/16/2024 9:38 PM SUBJECT SCIENTIFIC RESEARCH) Phosphorus, pl 3.3 2.3 - 4.5 mg/dL Blood 03/16/2024 9:38 PM SUBJECT SCIENTIFIC RESEARCH 03/16/2024 10:45 PM SUBJECT SCIENTIFIC RESEARCH [facility] LAB BLOOD ORDERABLE S Final Result Performing Organization Address City/[facility]/ZIP Co de Phone Number [facility] [place] [address] * Magnesium (03/16/2024 9:38 PM SUBJECT SCIENTIFIC RESEARCH) Pathologist [facility] Magnesium 2.0 1.4 - 2.5 mg/dL Blood 03/16/2024 9:38 PM SUBJECT SCIENTIFIC RESEARCH 03/16/2024 10:45 PM SUBJECT SCIENTIFIC RESEARCH [facility] LAB BLOOD ORDERABLE S Final Result Performing Organization Address [facility] de Phone Number [facility] [place] [address] * Basic metabolic panel (03/16/2024 9:38 PM SUBJECT SCIENTIFIC RESEARCH) [facility] Sodium 137 135 - 145 mmol/L Potassium, pl 3.7 3.3 - 4.9 mmol/L [facility] Chloride 97 97 - 110 mmol/L [facility] CO2 32 22 - 32 mmol/L [facility] Anion gap 8 2 - 15 mmol/L [facility] BUN 13 6 - 25 mg/dL [facility] Creatinine 1.13 0.80 - 1.30 mg/dL [facility] Glucose 95 70 - 199 mg/dL [facility] Comment: Interpretive Data Fasting glucose >/= 126 [...] 2022. Calcium 9.1 8.5 - 10.3 mg/dL [facility] Blood 03/16/2024 9:38 PM SUBJECT SCIENTIFIC RESEARCH 03/16/2024 10:45 PM SUBJECT SCIENTIFIC RESEARCH [facility] LAB BLOOD ORDERABLE S Final Result Performing Organization Address [facility] de Phone Number [facility] [place] [address] * (ABNORMAL) Urinalysis, microscopic only (03/16/2024 4:43 AM SUBJECT SCIENTIFIC RESEARCH) WBC, ur 0-5 0 - 5 /HPF RBC, ur 3-5(A) 0 - 2 /HPF [facility] Bacteria, ur 3+(A) [facility] Yeast, ur 2+(A) [facility] Mucous, ur Present(A) [facility] Amorphous crystals, ur 3+(A) [facility] Hyaline casts, ur 1-5 0 - 10 /LPF [facility] Culture Reflex Comment Reflex conditions for urine culture (WBC >10) not met. [facility] Urine, clean voided 03/16/2024 4:43 AM SUBJECT SCIENTIFIC RESEARCH 03/16/2024 4:59 AM SUBJECT SCIENTIFIC RESEARCH [facility] Michelle [facility] URINE ORDERABLE S Final Result Performing Organization Address [facility] [place] [address] * (ABNORMAL) Urinalysis reflex to microscopic and culture Urine, clean voided (03/16/2024 4:43 AM SUBJECT SCIENTIFIC RESEARCH) Color, ur Ruth Yellow Clarity, ur Cloudy(A) Clear [facility] Specific gravity, ur 1.033(H) 1.003 - 1.030 [facility] pH, urine 8.0 [facility] Comment: Interpretive Data ? Urine pH is affected by diet, medications, systemic acid-base disturbances, and renal tubular function. ??pH may affect urinary stone formation. ??For example, urine pH below 6.0 may help reduce the tendency for calcium phosphate stones and pH greater than 6.0 may reduce the tendency for uric acid stone formation. Source: [facility] Current Interpretive Data was last revised on 2017 Protein, ur ql 1+(A) Negative [facility] Glucose, ur ql Negative Negative [facility] Ketones, ur 4+(A) Negative [facility] Bilirubin, ur 1+(A) Negative [facility] Blood, ur Negative Negative [facility] Urobilinogen, ur >=8.0(A) <2.0 mg/dL [facility] Nitrite, ur Negative Negative [facility] Leukocyte esterase, ur Negative Negative [facility] UA reflex comment Reflex to microscopic UA will be performed. [facility] Urine, clean voided 03/16/2024 4:43 AM SUBJECT SCIENTIFIC RESEARCH 03/16/2024 4:59 AM SUBJECT SCIENTIFIC RESEARCH Esther Bautista DO LAB MICROBIOLOGY - GENERAL ORDERABLES Final Result Performing Organization Address City/State/[facility] Co de Phone Number [facility] [place] [address] * XR Abdomen Ap 1 Vw (03/16/2024 2:08 AM SUBJECT SCIENTIFIC RESEARCH) Anatomical Region Laterality Modality Body, Abdomen N/A Digital Radiogra phy 03/16/2024 8:30 AM SUBJECT SCIENTIFIC RESEARCH Impressions 03/16/2024 8:30 AM SUBJECT SCIENTIFIC RESEARCH Initial exam 12:07 PM. ??Nasogastric tube terminates [...] Shay Dougherty M.D. Narrative 03/16/2024 8:30 AM SUBJECT SCIENTIFIC RESEARCH EXAMINATION: Abdomen, one view x3 exams. Procedure [...] Electronically signed by: Shay Dougherty M.D. Esther Michelle Phoenixshelby DO IMG XR PROCEDURES F inal Result * eGFR (03/15/2024 10:08 PM SUBJECT SCIENTIFIC RESEARCH) eGFR >90 >=60 mL/min/1. 73 m2 Comment: [...] reviewed 2021. Blood 03/15/2024 10:0 8 PM SUBJECT SCIENTIFIC RESEARCH 03/15/2024 10:48 PM SUBJECT SCIENTIFIC RESEARCH Esther [facility] [place] LAB BLOOD ORDERABLE S Final Result Performing Organization Address [facility]/ZIP Co de Phone Number [facility] [place] [address] * (ABNORMAL) CBC without differential (03/15/2024 10:08 PM SUBJECT SCIENTIFIC RESEARCH) WBC 11.3(H) 3.8 - 9.9 K/cumm Hgb 12.5(L) 13.0 - 17.5 g/dL [facility] Hct 37.0(L) 38.9 - 50.3 % [facility] Plt 297 150 - 400 K/cumm [facility] MPV 9.4 9.1 - 12.3 fL [facility] RBC 4.43 4.30 - 5.80 M/cumm [facility] MCV 83.5 81.3 - 96.4 fL [facility] MCH 28.2 27.1 - 33.3 pg [facility] MCHC 33.8 32.3 - 35.7 g/dL [facility] RDW CV 11.0(L) 11.1 - 14.9 % [facility] RDW SD 33.6(L) 35.7 - 48.1 fL [facility] NRBC abs 0.00 0.00 - 0.01 K/cumm [facility] Blood 03/15/2024 10:0 8 PM SUBJECT SCIENTIFIC RESEARCH 03/15/2024 10:47 PM SUBJECT SCIENTIFIC RESEARCH Esther Bautista DO LAB BLOOD ORDERABLE S Final Result [facility] [place] [address] * Phosphorus (03/15/2024 10:08 PM SUBJECT SCIENTIFIC RESEARCH) Phosphorus, pl 4.1 2.3 - 4.5 mg/dL Blood 03/15/2024 10:0 8 PM SUBJECT SCIENTIFIC RESEARCH 03/15/2024 10:48 PM SUBJECT SCIENTIFIC RESEARCH [facility] LAB BLOOD ORDERABLE S Final Result [facility] [address] * Magnesium (03/15/2024 10:08 PM SUBJECT SCIENTIFIC RESEARCH) Pathologist [facility] Magnesium 2.3 1.4 - 2.5 mg/dL Blood 03/15/2024 10:0 8 PM SUBJECT SCIENTIFIC RESEARCH 03/15/2024 10:48 PM SUBJECT SCIENTIFIC RESEARCH [facility] BLOOD ORDERABLE S Final Result Performing Organization Address [facility] de Phone Number [facility] [place] [address] * (ABNORMAL) Basic metabolic panel (03/15/2024 10:08 PM SUBJECT SCIENTIFIC RESEARCH) [facility] Sodium 139 135 - 145 mmol/L Potassium, pl 3.7 3.3 - 4.9 mmol/L [facility] Chloride 96(L) 97 - 110 mmol/L [facility] CO2 32 22 - 32 mmol/L [facility] Anion gap 11 2 - 15 mmol/L [facility] BUN 13 6 - 25 mg/dL [facility] Creatinine 1.16 0.80 - 1.30 mg/dL [facility] Glucose 88 70 - 199 mg/dL [facility] Comment: Interpretive Data Fasting glucose >/= 126 [...] 2022. Calcium 9.5 8.5 - 10.3 mg/dL [facility] Blood 03/15/2024 10:0 8 PM SUBJECT SCIENTIFIC RESEARCH 03/15/2024 10:48 PM SUBJECT SCIENTIFIC RESEARCH Esther Michelle Bautista DO LAB BLOOD ORDERABLE S Final Result Performing Organization Address [facility] Co de Phone Number [facility] [place] [address] * POCT glucose (03/15/2024 6:00 PM SUBJECT SCIENTIFIC RESEARCH) Glucose, POC 92 70 - 199 mg/dL Blood 03/15/2024 6:00 PM SUBJECT SCIENTIFIC RESEARCH 03/15/2024 6:00 PM SUBJECT SCIENTIFIC RESEARCH Esther Michelle Bautista DO LAB POCT ORDERABLES - DEVICE Final Result Performing Organization Address [facility] de Phone Number [facility] [place] [address] * XR Abdomen 1 View AP (03/15/2024 2:24 PM SUBJECT SCIENTIFIC RESEARCH) Anatomical Region Laterality Modality Body, Abdomen N/A Digital Radiogra phy 03/16/2024 8:30 AM SUBJECT SCIENTIFIC RESEARCH Impressions 03/16/2024 8:30 AM SUBJECT SCIENTIFIC RESEARCH Initial exam 12:07 PM. ??Nasogastric tube terminates [...] Shay Dougherty M.D. Narrative 03/16/2024 8:30 AM SUBJECT SCIENTIFIC RESEARCH EXAMINATION: Abdomen, one view x3 exams. Procedure [...] Result * POCT glucose (03/15/2024 12:31 PM SUBJECT SCIENTIFIC RESEARCH) Glucose, POC 91 70 - 199 mg/dL Blood 03/15/2024 12:3 1 PM SUBJECT SCIENTIFIC RESEARCH 03/15/2024 12:31 PM SUBJECT SCIENTIFIC RESEARCH Esther Bautista DO LAB POCT ORDERABLES - DEVICE Final Result [facility] [place] [address] * XR Abdomen 1 View AP (03/15/2024 12:29 PM SUBJECT SCIENTIFIC RESEARCH) Anatomical Region Laterality Modality Body, Abdomen N/A Computed Radiogr aphy 03/16/2024 8:30 AM SUBJECT SCIENTIFIC RESEARCH Impressions 03/16/2024 8:30 AM SUBJECT SCIENTIFIC RESEARCH Initial exam 12:07 PM. ??Nasogastric tube terminates [...] Shay Dougherty M.D. Narrative 03/16/2024 8:30 AM SUBJECT SCIENTIFIC RESEARCH EXAMINATION: Abdomen, one view x3 exams. Procedure [...] inal Result * eGFR (03/14/2024 10:11 PM SUBJECT SCIENTIFIC RESEARCH) eGFR >90 >=60 mL/min/1. 73 m2 Comment: [...] Inclusion of Race in Diagnosing Kidney Disease, BRADN 2020). The CKD-EPI equation should not be used for patients with unstable renal function and has not been validated in children and those over 70. Current interpretive data was last reviewed 2021. Blood 03/14/2024 10:1 1 PM SUBJECT SCIENTIFIC RESEARCH 03/14/2024 10:41 PM SUBJECT SCIENTIFIC RESEARCH [facility] Michelle [facility] [place] LAB BLOOD ORDERABLE S Final Result Performing Organization Address City/[facility]/ZIP Co de Phone Number [facility] [place] [address] * (ABNORMAL) CBC without differential (03/14/2024 10:11 PM SUBJECT SCIENTIFIC RESEARCH) WBC 11.0(H) 3.8 - 9.9 K/cumm Hgb 12.5(L) 13.0 - 17.5 g/dL [facility] Hct 36.3(L) 38.9 - 50.3 % [facility] Plt 255 150 - 400 K/cumm [facility] MPV 9.8 9.1 - 12.3 fL [facility] RBC 4.34 4.30 - 5.80 M/cumm [facility] MCV 83.6 81.3 - 96.4 fL [facility] MCH 28.8 27.1 - 33.3 pg [facility] MCHC 34.4 32.3 - 35.7 g/dL [facility] RDW CV 10.9(L) 11.1 - 14.9 % [facility] RDW SD 33.6(L) 35.7 - 48.1 fL [facility] NRBC abs 0.00 0.00 - 0.01 K/cumm [facility] Blood 03/14/2024 10:1 1 PM SUBJECT SCIENTIFIC RESEARCH 03/14/2024 10:42 PM SUBJECT SCIENTIFIC RESEARCH Esther Michelle Bautista LAB BLOOD ORDERABLE S Final Result Performing Organization Address City/[facility]/ZIP Co de Phone Number [facility] [place] [address] * Phosphorus (03/14/2024 10:11 PM SUBJECT SCIENTIFIC RESEARCH) Pathologist [facility] Phosphorus, pl 3.4 2.3 - 4.5 mg/dL Blood 03/14/2024 10:1 1 PM SUBJECT SCIENTIFIC RESEARCH 03/14/2024 10:41 PM SUBJECT SCIENTIFIC RESEARCH [facility] LAB BLOOD ORDERABLE S Final Result Performing Organization Address City/[facility]/[place] [address] * Magnesium (03/14/2024 10:11 PM SUBJECT SCIENTIFIC RESEARCH) [facility] Magnesium 1.8 1.4 - 2.5 mg/dL Blood 03/14/2024 10:1 1 PM SUBJECT SCIENTIFIC RESEARCH 03/14/2024 10:41 PM SUBJECT SCIENTIFIC RESEARCH [facility] BLOOD ORDERABLE S Final Result Performing Organization Address City/[facility]/[place] [address] * (ABNORMAL) Basic metabolic panel (03/14/2024 10:11 PM SUBJECT SCIENTIFIC RESEARCH) [facility] Sodium 138 135 - 145 mmol/L Potassium, pl 3.6 3.3 - 4.9 mmol/L [facility] Chloride 96(L) 97 - 110 mmol/L [facility] CO2 30 22 - 32 mmol/L [facility] Anion gap 12 2 - 15 mmol/L [facility] BUN 9 6 - 25 mg/dL [facility] Creatinine 1.15 0.80 - 1.30 mg/dL [facility] Glucose 88 70 - 199 mg/dL [facility] Comment: Interpretive Data Fasting glucose >/= 126 [...] 2022. Calcium 9.4 8.5 - 10.3 mg/dL [facility] Blood 03/14/2024 10:1 1 PM SUBJECT SCIENTIFIC RESEARCH 03/14/2024 10:41 PM SUBJECT SCIENTIFIC RESEARCH [facility] LAB BLOOD ORDERABLE S Final Result Performing Organization Address [facility] de Phone Number [facility] [place] [address] * (ABNORMAL) Urinalysis, microscopic only (03/14/2024 6:07 PM SUBJECT SCIENTIFIC RESEARCH) WBC, ur 0-5 0 - 5 /HPF RBC, ur 0-2 0 - 2 /HPF [facility] Mucous, ur Present(A) [facility] Amorphous crystals, ur 4+(A) [facility] Urine 03/14/2024 6:07 PM SUBJECT SCIENTIFIC RESEARCH 03/14/2024 6:41 PM SUBJECT SCIENTIFIC RESEARCH [facility] URINE ORDERABLE S Final Result Performing Organization Address [facility] de Phone Number [facility] [place] [address] * (ABNORMAL) Urinalysis reflex to microscopic (03/14/2024 6:07 PM SUBJECT SCIENTIFIC RESEARCH) Color, ur Ruth Yellow Clarity, ur Cloudy(A) Clear [facility] Specific gravity, ur 1.022 1.003 - 1.030 [facility] pH, urine 8.0 [facility] Comment: Interpretive Data ? Urine pH is affected by diet, medications, systemic acid-base disturbances, and renal tubular function. ??pH may affect urinary stone formation. ??For example, urine pH below 6.0 may help reduce the tendency for calcium phosphate stones and pH greater than 6.0 may reduce the tendency for uric acid stone formation. Source: [facility] Current Interpretive Data was last revised on 2017 Protein, ur ql 1+(A) Negative [facility] Glucose, ur ql Negative Negative [facility] Ketones, ur 4+(A) Negative [facility] Bilirubin, ur Negative Negative [facility] Blood, ur Negative Negative [facility] Urobilinogen, ur 4.0(A) <2.0 mg/dL [facility] Nitrite, ur Negative Negative [facility] Leukocyte esterase, ur Negative Negative [facility] UA reflex comment Reflex to microscopic UA will be performed. [facility] Urine 03/14/2024 6:07 PM SUBJECT SCIENTIFIC RESEARCH 03/14/2024 6:41 PM SUBJECT SCIENTIFIC RESEARCH Esther Bautista DO LAB URINE ORDERABLE S Final Result [facility] [place] [address] * eGFR (03/14/2024 4:14 AM SUBJECT SCIENTIFIC RESEARCH) eGFR >90 >=60 mL/min/1. 73 m2 Comment: [...] last reviewed 2021. Blood 03/14/2024 4:14 AM SUBJECT SCIENTIFIC RESEARCH 03/14/2024 4:47 AM SUBJECT SCIENTIFIC RESEARCH us Esther Bautista DO LAB BLOOD ORDERABLE S Final Result [facility] [place] [address] * (ABNORMAL) CBC without differential (03/14/2024 4:14 AM SUBJECT SCIENTIFIC RESEARCH) WBC 10.0(H) 3.8 - 9.9 K/cumm Hgb 11.5(L) 13.0 - 17.5 g/dL [facility] Hct 34.0(L) 38.9 - 50.3 % [facility] Plt 208 150 - 400 K/cumm [facility] MPV 9.7 9.1 - 12.3 fL [facility] RBC 4.05(L) 4.30 - 5.80 M/cumm [facility] MCV 84.0 81.3 - 96.4 fL [facility] MCH 28.4 27.1 - 33.3 pg [facility] MCHC 33.8 32.3 - 35.7 g/dL [facility] RDW CV 11.0(L) 11.1 - 14.9 % [facility] RDW SD 33.8(L) 35.7 - 48.1 fL [facility] NRBC abs 0.00 0.00 - 0.01 K/cumm [facility] Blood 03/14/2024 4:14 AM SUBJECT SCIENTIFIC RESEARCH 03/14/2024 4:46 AM SUBJECT SCIENTIFIC RESEARCH Esther Hernandezdinashelby DO LAB BLOOD ORDERABLE S Final Result Performing Organization Address City/[facility]/ZIP Co de Phone Number ROMAN [facility] [place] [address] * Phosphorus (03/14/2024 4:14 AM SUBJECT SCIENTIFIC RESEARCH) Pathologist [facility] Phosphorus, pl 3.0 2.3 - 4.5 mg/dL Blood 03/14/2024 4:1 4 AM SUBJECT SCIENTIFIC RESEARCH 03/14/2024 4:47 AM SUBJECT SCIENTIFIC RESEARCH Esther Hernandezdinashelby DO LAB BLOOD ORDERABLE S Final Result Performing Organization Address [facility] Co de Phone Number ROMAN [facility] [place] [address] * Magnesium (03/14/2024 4:14 AM SUBJECT SCIENTIFIC RESEARCH) Pathologist [facility] Magnesium 1.9 1.4 - 2.5 mg/dL Blood 03/14/2024 4:14 AM SUBJECT SCIENTIFIC RESEARCH 03/14/2024 4:47 AM SUBJECT SCIENTIFIC RESEARCH Esther Michelle Phoenixshelby LAB BLOOD ORDERABLE S Final Result Performing Organization Address City/[facility] [place] [address] * (ABNORMAL) Basic metabolic panel (03/14/2024 4:14 AM SUBJECT SCIENTIFIC RESEARCH) Sodium 134(L) 135 - 145 mmol/L Potassium, pl 3.7 3.3 - 4.9 mmol/L [facility] Chloride 96(L) 97 - 110 mmol/L [facility] CO2 26 22 - 32 mmol/L [facility] Anion gap 12 2 - 15 mmol/L [facility] BUN 9 6 - 25 mg/dL [facility] Creatinine 1.12 0.80 - 1.30 mg/dL [facility] Glucose 100 70 - 199 mg/dL [facility] Comment: Interpretive Data Fasting glucose >/= 126 [...] 2022. Calcium 9.0 8.5 - 10.3 mg/dL [facility] Blood 03/14/2024 4:14 AM SUBJECT SCIENTIFIC RESEARCH 03/14/2024 4:47 AM SUBJECT SCIENTIFIC RESEARCH us Esther Bautista DO LAB BLOOD ORDERABLE S Final Result [facility] [place] [address] * XR Abdomen 1 View AP (03/13/2024 11:24 PM SUBJECT SCIENTIFIC RESEARCH) Anatomical Region Laterality Modality Body, Abdomen N/A Computed Radiogr aphy 03/14/2024 8:57 AM SUBJECT SCIENTIFIC RESEARCH Impressions 03/14/2024 11:09 AM SUBJECT SCIENTIFIC RESEARCH Gastric tube tip terminates in the cardia with side-port in the fundus. Dictated by: Oh Moran MD The radiology attending physician has personally reviewed this study, and had reviewed and/or edited this written report and agrees with it. Electronically signed by: Shay Dougherty M.D. Narrative 03/14/2024 11:09 AM SUBJECT SCIENTIFIC RESEARCH EXAMINATION: Abdomen, one view. HISTORY: Check tube [...] inal Result * eGFR (03/12/2024 10:31 PM SUBJECT SCIENTIFIC RESEARCH) eGFR 89 >=60 mL/min/1. 73 m2 Comment: [...] reviewed 2021. Blood 03/12/2024 10:3 1 PM SUBJECT SCIENTIFIC RESEARCH 03/12/2024 11:03 PM SUBJECT SCIENTIFIC RESEARCH Esther Bautista DO LAB BLOOD ORDERABLE S Final Result [facility] [place] [employer] [place] [address] * RPR Blood (03/12/2024 10:31 PM SUBJECT SCIENTIFIC RESEARCH) RPR Nonreactive Nonreactive Blood 03/12/2024 10:3 1 PM SUBJECT SCIENTIFIC RESEARCH 03/12/2024 11:03 PM SUBJECT SCIENTIFIC RESEARCH Esther Bautista DO LAB MICROBIOLOGY - GENERAL ORDERABLES Final Result Performing Organization Address City/[facility] [place] [address] * Hepatitis C antibody Blood (03/12/2024 10:31 PM SUBJECT SCIENTIFIC RESEARCH) Hep C Ab Nonreactive Nonreactive Comment:Antibodies to HCV no t detected. Does NOT exclude the possibility of recent exposure to HCV. Current interpretive data was last revised on 21 Blood 03/12/2024 10:3 1 PM SUBJECT SCIENTIFIC RESEARCH 03/12/2024 11:04 PM SUBJECT SCIENTIFIC RESEARCH Esther Bautista DO LAB MICROBIOLOGY - GENERAL ORDERABLES Final Result Performing Organization Address City/[facility]/ZIP Co de Phone Number [facility] [employer] [place] [address] * Hepatitis B Surface Antigen Blood (03/12/2024 10:31 PM SUBJECT SCIENTIFIC RESEARCH) HepBsAg Nonreactive Nonreactive Blood 03/12/2024 10:3 1 PM SUBJECT SCIENTIFIC RESEARCH 03/12/2024 11:04 PM SUBJECT SCIENTIFIC RESEARCH Esther Bautista DO LAB MICROBIOLOGY - GENERAL ORDERABLES Final Result Performing Organization Address City/[facility] Co de Phone Number ROMAN [facility] [employer] [place] [address] * HIV 1/2 Antibody plus p24 Antigen Blood (03/12/2024 10:31 PM SUBJECT SCIENTIFIC RESEARCH) [facility] HIV 1/2 ab + p24 ag Nonreactive Nonreactive Comment:Nonreactive for HIV- 1 antigen and HIV-1/HIV-2 antibodies. No laboratory evidence of HIV infection. If acute HIV infection is suspected, consider testing for HIV-1 RNA. Current interpretive data was last revised on 21. Blood 03/12/2024 10:3 1 PM SUBJECT SCIENTIFIC RESEARCH 03/12/2024 11:04 PM SUBJECT SCIENTIFIC RESEARCH us Esther Bautista DO LAB MICROBIOLOGY - GENERAL ORDERABLES Final Result [facility] [place] [address] * (ABNORMAL) CBC without differential (03/12/2024 10:31 PM SUBJECT SCIENTIFIC RESEARCH) [facility] WBC 15.8(H) 3.8 - 9.9 K/cumm Hgb 12.5(L) 13.0 - 17.5 g/dL [facility] Hct 36.8(L) 38.9 - 50.3 % [facility] Plt 213 150 - 400 K/cumm [facility] MPV 9.6 9.1 - 12.3 fL [facility] RBC 4.33 4.30 - 5.80 M/cumm [facility] MCV 85.0 81.3 - 96.4 fL [facility] MCH 28.9 27.1 - 33.3 pg [facility] MCHC 34.0 32.3 - 35.7 g/dL [facility] RDW CV 11.0(L) 11.1 - 14.9 % [facility] RDW SD 34.3(L) 35.7 - 48.1 fL [facility] NRBC abs 0.00 0.00 - 0.01 K/cumm [facility] Blood 03/12/2024 10:3 1 PM SUBJECT SCIENTIFIC RESEARCH 03/12/2024 11:04 PM SUBJECT SCIENTIFIC RESEARCH Esther Hernandezdinashelby LAB BLOOD ORDERABLE S Final Result [facility] [place] [address] * (ABNORMAL) Phosphorus (03/12/2024 10:31 PM SUBJECT SCIENTIFIC RESEARCH) Pathologist [facility] Phosphorus, pl 1.5(L) 2.3 - 4.5 mg/dL Blood 03/12/2024 10:3 1 PM SUBJECT SCIENTIFIC RESEARCH 03/12/2024 11:03 PM SUBJECT SCIENTIFIC RESEARCH Esther Hernandezdinashelby LAB BLOOD ORDERABLE S Final Result Performing Organization Address [facility] Co de Phone Number [facility] [place] [address] * Magnesium (03/12/2024 10:31 PM SUBJECT SCIENTIFIC RESEARCH) [facility] Magnesium 1.7 1.4 - 2.5 mg/dL Blood 03/12/2024 10:3 1 PM SUBJECT SCIENTIFIC RESEARCH 03/12/2024 11:03 PM SUBJECT SCIENTIFIC RESEARCH Esther Michelle Hernandezdinashelby [facility] BLOOD ORDERABLE S Final Result Performing Organization Address City/[facility]/ZIP Co de Phone Number [facility] [place] [address] * Basic metabolic panel (03/12/2024 10:31 PM SUBJECT SCIENTIFIC RESEARCH) Sodium 137 135 - 145 mmol/L Potassium, pl 3.9 3.3 - 4.9 mmol/L [facility] Chloride 100 97 - 110 mmol/L [facility] CO2 25 22 - 32 mmol/L [facility] Anion gap 12 2 - 15 mmol/L [facility] BUN 8 6 - 25 mg/dL [facility] Creatinine 1.19 0.80 - 1.30 mg/dL [facility] Glucose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 Pain 2004 (Given - Provider: Stephie Carnes) potassium chloride (KLOR-CON) packet 40 mEq (COMPLETED) 40 mEq, oral, Once, On Wed03/17/24 at 0045, For 1 dose, Dissolve one packet in at least 120 mL of cold water or other beverage prior to administration. 0042 (Given - Provider: Nidia Pena RN) sodium chloride 0.9% flush 0.5-20 mL 0.5-20 mL, intra-catheter, Every 8 hours scheduled, First dose on Wed03/11/24 at 2200, Flush volume based on line type and size. 0600 (Due)1302 (Given - Provider: Nidia Leon)2009 (Given - Provider: Nidia Pena RN) 0508 (Not Given - Provider: Nidia Pena RN - Reason: Order parameters not met)1741 (Given - Provider: Nidia Leon)2005 (Given - Provider: Stephie Carnes) 0548 (Given - Provider: Stephie Carnes)1306 (Given - Provider: Dalila Solis RN) tamsulosin (FLOMAX) extended release capsule 0.4 mg 0.4 mg, oral, Daily with dinner, First dose (after last modification) on Wed03/17/24 at 1800, For 5 days, Do not crush, chew, cut, dissolve, open or otherwise manipulate tablet/capsule. 1740 (Given - Provider: Nidia Leon) Continuous Medication Order 03/16/2024 03/17/2024 03/18/2024 Lactated Ringer's (LR) infusion (CANCELED) 100 mL/hr, intravenous, Continuous, Starting on 03/11/24 at 2000 0641 (New Bag - Provider: Natalie Mojica RN)1737 (New Bag - Provider: Nidia Leon)1921 (Rate/Dose Verify - Provider: Nidia Pena RN)2000 (Rate/Dose Verify - Provider: Nidia Pena RN)2200 (Rate/Dose Verify - Provider: Nidia Pena RN)2300 (Rate/Dose Verify - Provider: Nidia Pena RN) 0000 (Rate/Dose Verify - Provider: Nidia Pena RN)0100 (Rate/Dose Verify - Provider: Nidia Pena RN)0200 (Rate/Dose Verify - Provider: Nidia Pena RN)0248 (New Bag - Provider: Nidia Pena RN)0300 (Rate/Dose Verify - Provider: Nidia Pena RN)0400 (Rate/Dose Verify - Provider: Nidia Pena RN)0500 (Rate/Dose Verify - Provider: Nidia Pena RN)1002 (Stopped - Provider: Nidia Leon) PRN Medication Order 03/16/2024 03/17/2024 03/18/2024 Carrier Fluids for Secondary Infusion - 0.9% Sodium Chloride 30 mL, intravenous, As needed, For priming tubing and/or flushing, Starting on 03/11/24 at 1925, 0-250 ml/hr to flush line after IV infusions when no maintenance IV ordered. Infuse 30mL at the same rate as the secondary infusion. Run as primary IV, not intended for KVO. naloxone (NARCAN) 0.4 mg/mL injection 0.04-0.4 mg 0.04-0.4 mg, intravenous, Every 10 min PRN, other, excessive sedation/respiratory depression, Starting on Wed03/14/24 at 1143, Dilute 0.4 mg with 9 mL NS (final concentration 0.04 mg/mL). For respiratory depression (respiratory rate less than 6), administer 0.4 mg IVP over 30 seconds. For excessive sedation administer 0.04 mg (1 mL) every 1 minute until desired level of alertness. Stop MANAGEMENT TECHNICIAN and notify covering MD. This order has been ordered with MANAGEMENT TECHNICIAN infusion, please review upon the discontinuation of MANAGEMENT TECHNICIAN. For IV, administer over 30 seconds., Indications: Opioid Toxicity oxyCODONE (ROXICODONE) tablet 5 mg 5 mg, oral, Every 4 hours PRN, 1st line for pain, Starting on Wed03/17/24 at 0936, Indications: Pain 1934 (Given - Provider: Stephie Carnes)2330 (Given - Provider: Stephie Carnes) 0324 (Given - Provider: Stephie Carnes)0827 (Given - Provider: Dalila Solis, ZENIA)1306 (Given - Provider: Dalila Solis, ZENIA) phenoL (CHLORASEPTIC) 1.4 % oral spray 1 spray 1 spray, mouth/throat, Every 2 hours PRN, sore throat, Starting on 03/13/24 at 1332 sodium chloride 0.9% flush 0.5-20 mL 0.5-20 mL, intra-catheter, As needed, line care, Starting on 03/11/24 at 1925, Flush volume based on line type and size. Flush before and after each use. documented in this encounter Orders Medications Ordered That Yoel ht Not Have Been Administered Count Last Ordered Date First Ordered Date potassium chloride (KLOR-CON ) packet 40 mEq 1 03/17/2024 tamsulosin (FLOMAX) extended release capsule 0.4 mg 1 03/17/2024 potassium chloride 40 mEq/52 0 mL in sodium chloride 0.9% (premix) 40 mEq 1 03/16/2024 naloxone (NARCAN) 0.4 mg/mL injection 0.04-0.4 mg 2 03/14/2024 03/11/2024 Carrier Fluids for Secondary Infusion - 0.9% Sodium Chloride 1 03/11/2024 diphenhydrAMINE (BENADRYL) 5 0 mg/mL injection 12.5 mg 1 03/11/2024 haloperidol (HALDOL) injection 1 mg 1 03/11 HYDROmorphone (DILAUDID) injection 0.2 mg 1 03/11/2024 HYDROmorphone (DILAUDID) injection 0.4 mg 1 03/11/2024 meperidine (DEMEROL) preserv ative free injection 12.5 mg 1 03/11/2024 ondansetron (ZOFRAN) injection 4 mg 1 03/11 oxyCODONE (ROXICODONE) tablet 5 mg 1 2023 prochlorperazine (COMPAZINE) injection 5 mg 1 03/11/2024 sodium chloride 0.9% flush 0.5-20 mL 1 02/13 sodium chloride 0.9% infusion 1 03/11/2024 sodium chloride 0.9% irrigation 2 General Supply Count Last Ordered Date First Or dered Date DRESSING SUPPLIES 1 03/18/2024 OSTOMY SUPPLIES 1 03/18/2024 VASHE WOUND CLEANSING SOLUTI ON 16 OZ. BOTTLE ([id number]) 1 03/18/2024 Diet Count Last Ordered Date First Orde red Date ADULT DISCHARGE DIET 1 03/18/2024 Nursing Count Last Ordered Date First Orde red Date DISCHARGE ACTIVITY 3 03/18/2024 DISCHARGE CALL PROVIDER 7 03/18/2024 DISCHARGE DRESSING 5 03/18/2024 BLADDER SCAN 1 03/12/2024 JUNIOR CATHETER - DISCONTINUE 1 03/12/2024 WEIGH PATIENT 1 03/11/2024 Consult Count Last Ordered Date First Orde red Date CONSULT TO WOUND CARE 2 03/12/20242023 IP CONSULT TO TRAUMA SURGERY 1 03/11/2024 Admission Count Last Ordered Date First Orde red Date ADMIT TO INPATIENT 1 03/11/2024 Discharge Count Last Ordered Date First Orde red Date DISCHARGE PATIENT 1 03/18/2024 Case Request Count Last Ordered Date First Orde red Date CASE REQUEST OPERATING ROOM 1 03/11/2024 documented in this encounter Care Teams Software Test Engineer Relationship Specialty Start Date End Date Ele Canas MD [address] [place] [address] PCP - General Family Medicine 10/20/21 documented as of this encounter
--- OUTSIDE RECORDS SUMMARY | 2024-03-26 02:07 | XMS_ITS | Encounter Summary ---
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
== END 2024-03-19 05:53 | disposition home or self-care (01) ==
PROVIDERS: Emergency Provider Emergency Medicine
DX: J39.2 Other diseases of pharynx (principal); Z20.822 Contact with and (suspected) exposure to COVID-19
CPT/HCPCS: 36415; 70491; 71260; 74177; 80053; 81001; 83605; 83735; 84145; 85025; 85610; 85730; 87637; 93005; 99284; Q9967